=== PATIENT | female | born 1985 | race African-American/Black ===

== ENCOUNTER 2021-08-05 11:57 | Outpatient (RCR) | payer OTHER, SELFPAY | END 2021-10-30 23:59 | disposition home or self-care (01) | LOC: ANHLAB 11:57 | PROVIDERS: Visit Provider Obstetrics & Gynecology | DX: O20.0 Threatened abortion (principal); Z3A.00 Weeks of gestation of pregnancy not specified | CPT/HCPCS: 36415; 84702 ==

== ENCOUNTER 2021-09-17 08:19 | Emergency (ER) | payer OTHER, SELFPAY ==
--- NOTE | ~2021-09-17 | US_ITS ---
EXAMINATION: US OB <= 14 weeks fetus DATE: 09/17/2021 09:14 INDICATION: Vaginal bleeding. Abdomen pain. TECHNIQUE: Real-time transabdominal obstetric ultrasound. FINDINGS: No prior studies for comparison. There is a single living fetus in variable presentation. There are 2 areas of subchorionic hemorrhage measuring up to 1.7 cm and 1.2 cm respectively. cardiac activity and movement is noted with a heart rate of 141 beats per minute. T he amniotic fluid volume is subjectively normal. The following biometric data were obtained: BPD: 27mm corresponds to gestational age 14 weeks 5 days. Head circumference: 86mm corresponds to gestational age 13 weeks 6 days. Abdominal circumference: 66mm corresponds to gestational age 13 weeks 2 days. Femur length: 11mm corresponds to gestational age 13 weeks 2 days. Estimated weight: 74grams +/- 11grams.] There is a 1.8 cm corpus luteal cyst of the right ovary. Left ovary is unremarkable. IMPRESSION: 1. Single living intrauterine with an estimated gestational age of 13 weeks 5 days by curr ent ultrasound. 2. 2 small areas of subchorionic hemorrhage. To 1.7 and 1.2 cm respectively.. Reviewed, dictated and finalized at location A. IMPRESSION: 1. Single living intrauterine with an estimated gestational age of 1 3 weeks 5 days by current ultrasound. 2. 2 small areas of subchorionic hemorrhage. To 1.7 and 1.2 cm respectively..
--- NOTE | 2021-09-17 08:31 | ED.GENADULT ---
HPI - General Adult General Chief complaint: Vaginal Bleeding Stated complaint: 13wks preg, vag bleed Time Seen by Provider: 09/17/21 08:21 Source: RN notes reviewed History of Present Illness HPI narrative: Patient presents emergency department from home for vaginal bleeding. Patient states she is approximately 13 weeks and is followed by Dr. Boles. Patient states she is G3, P2 this a.m. she began to have lower abdominal cramping with vaginal bleeding with wiping she denies any fevers or chills chest pain or shortness of breath states did not take anything for the pain this morning Related Data Allergies Allergy/AdvReac Type Severity Reaction Status Date / Time No Known Allergies Allergy Verified 04/16/16 17:52 Review of Systems Review of Systems: Gen.: Denies fevers or chills ENT: Denies congestion Respiratory: Denies shortness of breath or cough CV: Denies chest pain or palpitations GI: Reports lower abdominal pain denies nausea vomiting or diarrhea see HPI Musculoskeletal: Denies back pain or muscle pain Neuro: Denies numbness, tingling, weakness or focal weakness Skin: Denies rash Except as documented, all other systems reviewed and negative [facility] Past Medical History Medical History (Updated 09/17/21 @ 10:16 by Marcos Culp DO) Patient denies significant medical history Social History Social History (Updated 09/17/21 @ 08:32 by Marcos Culp DO) Smoking status: Never smoker Exam Narrative: APPEARANCE: No acute distress, nontoxic, resting in bed EYES: EOMI HEENT: Normocephalic, atraumatic, OMM RESPIRATORY: No respiratory distress Clear to auscultation bilaterally with no rhonchi wheezing or rales. CARDIOVASCULAR: Regular rate and rhythm without murmurs rubs or gallops. ABDOMINAL: Soft, nontender, nondistended, no rebound or guarding : Normal external exam small amount of dark brown blood in vaginal canal cervix is closed MUSCULOSKELETAl: Moves all extremities. No clubbing, cyanosis or edema. NEURO: Awake and alert. Following commands, speech normal, no focal deficits SKIN:: Warm, dry. No rashes lesions or abrasions PSYCHIATRIC: Normal affect/mood, Course Course Emergency Course: Reviewed old records patient with A + blood type from 03/11/[address] Butler presentation work-up agrees plan for discharge to follow-up as an outpatient Discussed with patient results of workup and diagnosis. Discussed need for follow-up with primary care, proper use of medication, and reasons to return to the emergency department. Patient understands and agrees to current treatment plan Vital Signs Vital signs: Vital Signs Temperature 97.2 F L 09/17/21 08:35 Pulse Rate 99 09/17/21 08:35 Respiratory Rate 18 09/17/21 08:35 Blood Pressure 157/98 H 09/17/21 08:35 Pulse Oximetry 98 09/17/21 08:35 Temperature 97.2 F L 09/17/21 08:35 Pulse Rate 99 09/17/21 08:35 Respiratory Rate 18 09/17/21 08:35 Blood Pressure 157/98 H 09/17/21 08:35 Pulse Oximetry 98 09/17/21 08:35 Medical Decision Making Vital Signs Vital Signs: Vital Signs Temperature 97.2 F L 09/17/21 08:35 Pulse Rate 99 09/17/21 08:35 Respiratory Rate 18 09/17/21 08:35 Blood Pressure 157/98 H 09/17/21 08:35 Pulse Oximetry 98 09/17/21 08:35 Temperature 97.2 F L 09/17/21 08:35 Pulse Rate 99 09/17/21 08:35 Respiratory Rate 18 09/17/21 08:35 Blood Pressure 157/98 H 09/17/21 08:35 Pulse Oximetry 98 09/17/21 08:35 Lab Data Result diagrams: 09/17/21 09:45 Labs: Lab Results 09/17/21 Range/Units 09:45 WBC 7.3 (4.5-10.0) K/mm3 RBC 4.53 (4.2-5.4) M/mm3 Hgb 10.5 L (12.0-15.0) g/dL Hct 33.3 L (37.0-47.0) % MCV 73.5 L (80-100) fl MCH 23.2 L (26-34) pg MCHC 31.5 L (32-36) g/dl RDW 14.6 H (11.5-14.5) % Plt Count 268 (150-375) k/mm3 MPV 12.5 H (7.4-10.4) fl Immature Gran % (Auto) 0.3 (0-0.5) % Neut % (Auto) 70.4
[2021-09-17 08:35] VITALS: BP 157/98; PULSE 99; RESP 18; TEMP 36.2; O2SAT 98
[2021-09-17] MEDS: ACETAMINOPHEN 500 MG TABLET 1000 MG PO (08:41)
--- NOTE | 2021-09-17 09:21 | PC.NURSE ---
Pt in ultrasound at this time
[2021-09-17 09:51] LABS: Basophils Percent Auto 0.4 % (0.2-1.2); Eosinophils Absolute Auto 0.1 K/mm3 (0-0.3); Eosinophils Percent Auto 1.4 % (0-4.4); Hematocrit 33.3 % (37.0-47.0); Hemoglobin 10.5 g/dL (12.0-15.0); Immature Granulocyte Absolute 0.02 K/mm3 (0.00-0.031); Immature Granulocyte Percent A 0.3 % (0-0.5); Lymphocytes Absolute Auto 1.66 K/mm3 (0.9-3.2); Lymphocytes Percent Auto 22.9 % (18.3-44.2); Mean Corpuscular HGB Conc 31.5 g/dl (32-36); Mean Corpuscular Hemoglobin 23.2 pg (26-34); Mean Corpuscular Volume 73.5 fl (80-100); Mean Platelet Volume 12.5 fl (7.4-10.4); Monocytes Absolute Auto 0.3 K/mm3 (0.1-0.6); Monocytes Percent Auto 4.6 % (2.6-8.5); Neutrophils Absolute Auto 5.1 K/mm3 (1.3-6.7); Neutrophils Percent Auto 70.4 % (45.5-73.1); Platelet Count Result 268 k/mm3 (150-375); Red Blood Count 4.53 M/mm3 (4.2-5.4); Red Cell Distribution Width 14.6 % (11.5-14.5); White Blood Count 7.3 K/mm3 (4.5-10.0)
== END 2021-09-17 10:26 | disposition home or self-care (01) ==
PROVIDERS: Emergency Provider Emergency Medicine; PCP Obstetrics & Gynecology
DX: O20.0 Threatened abortion (principal); Z3A.13 13 weeks gestation of pregnancy
CPT/HCPCS: 36415; 76801; 85025; 99284; A9270

== ENCOUNTER 2021-11-13 11:09 | Emergency (ER) | payer OTHER, SELFPAY ==
[2021-11-13 11:23] VITALS: BP 152/80; PULSE 95; RESP 16; TEMP 35.9; O2SAT 100
--- NOTE | 2021-11-13 12:18 | ED.EXTPRO ---
HPI - Extremity Problem General Chief complaint: Extremity Problem,Nontraumatic Stated complaint: 21 weeks preg, swelling in hands and feet Time Seen by Provider: 11/13/21 12:16 Source: patient Mode of arrival: ambulatory Limitations: no limitations History of Present Illness HPI Narrative: Patient is 35 years old -Serbian female, 21 weeks presented to ED because swelling of hands and feet every day when she wake up in the morning, get better during daytime. Today patient feels pain at the right hand and unable to close her hands which gradually is getting better. She denies any fever, chills, nausea, vomiting, diarrhea, vaginal bleeding or discharge or urinary symptoms. 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 Patient is 3 para 2 0. On albuterol treatment and vitamins, she does not smoke or drink or uses drugs. Related Data Allergies Allergy/AdvReac Type Severity Reaction Status Date / Time No Known Allergies Allergy Verified 11/13/21 12:07 Review of Systems Review of Systems: All systems reviewed & are unremarkable except as noted in HPI and below PMFSH Past Medical History Medical History Patient denies significant medical history Social History Social History Smoking status: Never smoker Exam Narrative: General appearance: Well-developed, well-nourished Skin: Normal color, trace edema lower extremity at the ankle area bilaterally Head: Normocephalic, nontraumatic Eyes: Clear conjunctiva ENT: Oropharynx normal, ears normal, nose normal Neck: Supple, nontender Chest and respiratory: Airway patent, no respiratory distress, no accessory muscle use Heart: Regular rate/rhythm Abdomen: Soft, nontender, no organomegaly, quiet bowel sounds Vascular: Normal peripheral pulses, normal capillary refill. Musculoskeletal: Normal range of motion, nontender back, hands and feet showed no sign of infection, no bruises, no swelling, no localized tenderness, no rash slightly tender with deep palpation. Neurologic: Alert and oriented ?3, [employer] is normal as tested, no gross motor deficit Course Course Emergency Course: Patient symptoms high likely related to immobility, long hours of working in the standing position, and sedentary life and related symptoms. Work-up showed possible urinary tract infection, amoxicillin prescribed, patient agreed and ready to go home. Vital Signs Vital signs: Vital Signs Temperature 35.9 C L 11/13/21 11:23 Pulse Rate 95 11/13/21 11:23 Respiratory Rate 16 11/13/21 11:23 Blood Pressure 152/80 H 11/13/21 11:23 Pulse Oximetry 100 11/13/21 11:23 Temperature 35.9 C L 11/13/21 11:23 Pulse Rate 95 11/13/21 11:23 Respiratory Rate 16 11/13/21 11:23 Blood Pressure 152/80 H 11/13/21 11:23 Pulse Oximetry 100 11/13/21 11:23 MDM - Extremity (Nontraumatic) Lab Data Result diagrams: 11/13/21 12:47 11/13/21 12:47 Labs: Lab Results 11/13/21 11/13/21 11/13/21 Range/Units 12:47 12:47 12:47 WBC 9.2 (4.5-10.0) K/mm3 RBC 4.35 (4.2-5.4) M/mm3 Hgb 10.0 L (12.0-15.0) g/dL Hct 32.0 L (37.0-47.0) % MCV 73.6 L (80-100) fl MCH 23.0 L (26-34) pg MCHC 31.3 L (32-36) g/dl RDW 14.2 (11.5-14.5) % Plt Count 208 (150-375) k/mm3 MPV 11.8 H (7.4-10.4) fl Immature Gran % (Auto) 0.3 (0-0.5) % Neut % (Auto) 75.1 H (45.5-73.1) % Lymph % (Auto) 18.5 (18.3-44.2) % Gage % (Auto) 4.5 (2.6-8.5) % Eos % (A
--- NOTE | 2021-11-13 12:22 | ECG_ITS ---
Measurements Intervals [place] Rate: 80 P: 2 OK: 159 QRS: 10 QRSD: 92 T: 10 QT: 366 QTc: 422 Interpretive Statements SINUS RHYTHM WITH SINUS ARRHYTHMIA BASELINE ARTIFACT- I, II, III, AVR, AVF NORMAL ECG Electronically Signed On 11-13-2021 13:34:47 CDT by Evelio Sherwood D.O.
[2021-11-13 12:55] LABS: Basophils Percent Auto 0.2 % (0.2-1.2); Eosinophils Absolute Auto 0.1 K/mm3 (0-0.3); Eosinophils Percent Auto 1.4 % (0-4.4); Immature Granulocyte Absolute 0.03 K/mm3 (0.00-0.031); Immature Granulocyte Percent A 0.3 % (0-0.5); Immature Platelet Fraction Pct 5.6 % (0.9-11.2); Lymphocytes Percent Auto 18.5 % (18.3-44.2); Mean Corpuscular HGB Conc 31.3 g/dl (32-36); Mean Corpuscular Volume 73.6 fl (80-100); Mean Platelet Volume 11.8 fl (7.4-10.4); Monocytes Absolute Auto 0.4 K/mm3 (0.1-0.6); Monocytes Percent Auto 4.5 % (2.6-8.5); Neutrophils Absolute Auto 6.9 K/mm3 (1.3-6.7); Neutrophils Percent Auto 75.1 % (45.5-73.1); Platelet Count Result 208 k/mm3 (150-375); Red Blood Count 4.35 M/mm3 (4.2-5.4); Red Cell Distribution Width 14.2 % (11.5-14.5); White Blood Count 9.2 K/mm3 (4.5-10.0)
[2021-11-13 13:04] LABS: Prothrombin Time 12.9 Seconds (11.1-14.7)
[2021-11-13 13:05] LABS: Alanine Aminotransferase 29 U/L (6-35); Albumin Level 3.7 g/dL (3.5-5.1); Alkaline Phosphatase 49 U/L (38-126); Anion Gap 7 mmol/L (8-16); Aspartate Amino Transferase 29 U/L (14-36); Bilirubin,Total 0.1 mg/dL (0.2-1.3); Blood Urea Nitrogen 9 mg/dL (7-17); Calcium 8.9 mg/dL (8.4-10.2); Carbon Dioxide 18 mmol/L (22-30); Chloride 110 mmol/L (98-107); Estimated CRCL calculation 133 ml/min; Estimated Glomerular Filt Rate > 60; Glucose 95 mg/dL (65-110); Potassium 3.9 mmol/L (3.4-5.0); Sodium 135 mmol/L (137-145)
[2021-11-13 13:13] LABS: Appearance Urine Cloudy (Clear); Bilirubin Urine Negative (Negative); Blood Urine 2+ (Negative); Color Urine Yellow (Yellow); Glucose Urine UA Negative (Negative); Ketones Urine Trace mg/dL (Negative); Leukocyte Esterase Ur 2+ LEU/UL (Negative); Nitrate Urine Negative (Negative); Protein Urine Trace mg/dL (Negative); Specific Grav Ur >= 1.030 (1.001-1.035); Urobilinogen Urine 0.2 mg/dL (<2.0)
[2021-11-13 13:44] LABS: Bacteria Urine Trace /hpf; Mucus Urine Heavy /lpf; Squamous Epithelial Cell Urine Many /hpf (Few)
[2021-11-13 13:51] LABS: Add Urine Microscopic? YES
== END 2021-11-13 14:30 | disposition home or self-care (01) ==
PROVIDERS: Emergency Provider Emergency Medicine; PCP Obstetrics & Gynecology
DX: O23.92 Unspecified genitourinary tract infection in pregnancy, second trimester (principal); O26.892 Other specified pregnancy related conditions, second trimester; M79.89 Other specified soft tissue disorders; Z3A.21 21 weeks gestation of pregnancy
CPT/HCPCS: 36415; 80053; 81001; 85025; 85055; 85610; 85730; 87086; 87088; 93005; 99283

== ENCOUNTER 2022-03-14 10:00 | Outpatient (CLI) | payer OTHER, SELFPAY ==
[2022-03-14 10:41] LABS: Hematocrit 35.4 % (37.0-47.0); Hemoglobin 10.6 g/dL (12.0-15.0); Immature Platelet Fraction Pct 4.7 % (0.9-11.2); Mean Corpuscular HGB Conc 29.9 g/dl (32-36); Mean Corpuscular Hemoglobin 21.8 pg (26-34); Mean Corpuscular Volume 72.7 fl (80-100); Mean Platelet Volume 11.2 fl (7.4-10.4); Platelet Count Result 221 k/mm3 (150-375); Red Blood Count 4.87 M/mm3 (4.2-5.4); Red Cell Distribution Width 15.5 % (11.5-14.5); White Blood Count 8.7 K/mm3 (4.5-10.0)
[2022-03-14 15:00] LABS: Rapid Plasma Reagin Non-Reactive (NonReactive)
== END 2022-03-14 10:01 | disposition home or self-care (01) ==
PROVIDERS: Visit Provider Obstetrics & Gynecology
DX: Z01.818 Encounter for other preprocedural examination (principal)
CPT/HCPCS: 36415; 85027; 85055; 86592; 86850; 86900; 86901

== ENCOUNTER 2022-03-15 10:00 | Inpatient (IN) | payer OTHER, SELFPAY ==
[2022-03-15] VITALS (58 sets, daily range): BP systolic 78–147; BP diastolic 26–87; PULSE 79–96; RESP 16–22; TEMP 36.1–36.4; O2SAT 95–100; BMI 64.5
--- OUTSIDE RECORDS SUMMARY | 2022-03-15 10:06 | XMS_ITS | Encounter Summary ---
:1985 Author Care Team Providers Name Role Phone Phu Alvarez MD Primary Care Provider [phone] Reason for Visit OB visit OB [id number] EDC 03/27/2022 LMP 06/20/2021 Assessment and Plan Assessment Note Patient is _37__weeks . Discuss ed plan. 1. Routine care Discussion Note: None recorded.Patient educational handouts: No information available. Plan of Care Reminders Provider Appointments Surg Post Op 03/22/2022 2:30PM Daniel Butler MD Lab None recorded. ? ? Referral None recorded. ? ? Procedures None recorded. ? ? Surgeries None recorded. ? ? Imaging None recorded. ? ? Medications Name Start Date ? ? ergocalciferol (vitamin D2) 1,250 mcg (50,000 unit) ca psule ? TAKE 1 CAPSULE BY MOUTH EVERY WEEK FOR 12 WEEKS Vitamin ? ProAir HFA 90 mcg/actuation aerosol inhaler 09/16/2014 inhale 2 puff by inhalation route every 4 - 6 hours a s needed Vitamin D ? Medications Administered None recorded. Vitals Height Weight BMI Blood Pressure 5 ft 0.5 in 322 lbs 61.9 kg/m2 122/76 mm[Hg] Results Lab Results None recorded. Allergies Code Code System Name Reaction Severity Onset NKDA ? ? ? Notes: NO KNOWN ALLERGIES (Active) Com ment: Location: [facility]; Problems Name Status Onset Date Source ? Active 09/02/2021 ? Obesity Active ? ? Asthma Active ? ? Deliveries by Active
--- OUTSIDE RECORDS SUMMARY | 2022-03-15 10:06 | XMS_ITS | Encounter Summary ---
:1985 Author Care Team Providers Name Role Phone Phu Alvarez MD Primary Care Provider [phone] Reason for Visit None recorded. Assessment and Plan 1. Maternal obesity complicating pregna ncy, childbirth and the puerperium, antepartum ? non-stress test Discussion Note: None recorded.Patient educational handouts: No information available. Plan of Care Reminders Provider Appointments Surg Post Op 03/22/2022 2:30PM Daniel Butler MD Lab None recorded. ? ? Referral None recorded. ? ? Procedures None recorded. ? ? Surgeries None recorded. ? ? Imaging Non-stress Test 03/10/2022 [place] Medications Name Start Date ? ? ergocalciferol (vitamin D2) 1,250 mcg (50,000 unit) ca psule ? TAKE 1 CAPSULE BY MOUTH EVERY WEEK FOR 12 WEEKS Vitamin ? ProAir HFA 90 mcg/actuation aerosol inhaler 09/16/2014 inhale 2 puff by inhalation route every 4 - 6 hours a s needed Vitamin D ? Medications Administered None recorded. Vitals None recorded. Results Lab Results None recorded. Allergies Code Code System Name Reaction Severity Onset NKDA ? ? ? Notes: NO KNOWN ALLERGIES (Active) Com ment: Location: [facility]; Problems Name Status Onset Date Source ? Active 09/02/2021 ? Obesity Active ? ? Asthma Active ? ? Deliveries by Active ? ? Procedures Date Name Performed by ? 03/12/2015 Section Information not ricardo lovett
--- OUTSIDE RECORDS SUMMARY | 2022-03-15 10:06 | XMS_ITS | Encounter Summary ---
:1985 Author Care Team Providers Name Role Phone Phu Alvarez MD Primary Care Provider [phone] Reason for Visit None recorded. Assessment and Plan 1. Maternal obesity complicating pregna ncy, childbirth and the puerperium, antepartum ? US, obstetric, biophysical profile + non-stress test Discussion Note: None recorded.Patient educational handouts: No information available. Plan of Care Reminders Provider Appointments Surg Post Op 03/22/2022 Daniel washington MD 2:30PM Lab None recorded. ? ? Referral None recorded. ? ? Procedures None recorded. ? ? Surgeries None recorded. ? ? Imaging US, Obstetric, Biophysical 02/24/2022 [facility] Profile + Non-stress Test Medications Name Start Date ? ? ergocalciferol [...] NO KNOWN ALLERGIES (Active) Com ment: Location: [facility]; Problems Name Status Onset Date Source ? Active 09/02/2021 ? Obesity Active ? ? Asthma Active ? ? Deliveries by Active ? ? Proce
--- OUTSIDE RECORDS SUMMARY | 2022-03-15 10:06 | XMS_ITS ---
:1985 Author Care Team Providers Name Role Phone NANCY AUSTIN MD Primary Care Provider [phone] Allergies Code Code System Name Reaction Severity Status Onset NKDA ? Notes: NO KNOWN ALLERGIES (Active) Com ment: Location: [facility]; Medications Name Status Start Date Stop Date ? ? amoxicillin 875 mg tablet Completed ? 2021 TAKE 1 TABLET BY MOUTH EVERY 12 HOURS ergocalciferol (vitamin D2) 1,250 mcg (50,000 unit) capsule Acti ve ? Not available TAKE 1 CAPSULE BY MOUTH EVERY WEEK FOR 12 WEEKS Judy 0.35 mg tablet Completed 08/15/2018 07/04/2019 take 1 tablet by oral route every day hydrochlorothiazide 25 mg tablet Completed 03/18/2015 04/14/2015 take 1 tablet by oral route every day iron 18 mg tablet Completed 04/14/2015 01/22/2021 Microgestin FE /20 (28) 1 mg-20 mcg (21)/75 mg (7) tablet Compl eted 10/06/2013 02/02/2014 take 1 tablet by oral route every day Ortho Tri-Cyclen LO (28) 0.18 mg/0.215 mg/0.25 mg-25 mcg tab let Completed 06/14/2015 07/11/2015 take 1 tablet by oral route every day for 28 days Vitamin Active ? Not available ProAir HFA 90 mcg/actuation aerosol inhaler Active 08/30 Not available inhale 2 puff by inhalation route every 4 - 6 hours as needed Tri Femynor (28) 0.18 mg(7)/0.215 mg(7)/0.25 Active ? Not available mg(7)-35 mcg tablet Vitamin D Active ? Not available Problems Name Status Onset Date Source ? Primigravida Unknown 01/20/2013 History Test Positive Unknown 01/20/2013 History Screening for Malignant Neoplasm of Cervix Unknown 01/20 History
--- OUTSIDE RECORDS SUMMARY | 2022-03-15 10:06 | XMS_ITS | Encounter Summary ---
:1985 Author Care Team Providers Name Role Phone Phu Alvarez MD Primary Care Provider [phone] Reason for Visit OB visit OB [id number] EDC 03/27/2022 LMP 06/20/2021 Assessment and Plan Assessment Note Patient is _36__weeks . Discuss ed plan. 1. Routine care [...] BMI Blood Pressure 5 ft 0.5 in 318 lbs 61.1 kg/m2 128/70 mm[Hg] Results Lab Results None recorded. Allergies Code Code System Name Reaction Severity Onset NKDA ? ? ? Notes: NO KNOWN ALLERGIES (Active) Com ment: Location: [facility]; Problems Name Status Onset Date Source ? Active 09/02/2021 ? Obesity Active ? ? Asthma Active ? ? Deliveries by Active
--- OUTSIDE RECORDS SUMMARY | 2022-03-15 10:06 | XMS_ITS | Encounter Summary ---
:1985 Author Care Team Providers Name Role Phone Phu Alvarez MD Primary Care Provider [phone] Reason for Visit None recorded. Assessment and Plan 1. Maternal obesity complicating pregna ncy, childbirth and the puerperium, antepartum ? US, obstetric, follow-up ? US, obstetric, biophysical profile + non-stress test Discussion Note: None recorded.Patient educational handouts: No information available. Plan of Care Reminders Provider Appointments Surg Post Op 03/22/2022 Daniel washington MD 2:30PM Lab None recorded. ? ? Referral None recorded. ? ? Procedures None recorded. ? ? Surgeries None recorded. ? ? Imaging US, Obstetric, Follow-up 03/03/2022 [place] ? US, Obstetric, Biophysical 03/03/2022 [place] Profile + Non-stress Test Medications Name Start [...] NO KNOWN ALLERGIES (Active) Com ment: Location: [facility]; Problems Name Status Onset Date Source ? Active 09/02/2021 ? Obesity Active ? ?
--- OUTSIDE RECORDS SUMMARY | 2022-03-15 10:06 | XMS_ITS | Encounter Summary ---
:1985 Author Care Team Providers Name Role Phone Phu Alvarez MD Primary Care Provider [phone] Reason for Visit None recorded. Assessment and [...] None recorded. ? ? Imaging Non-stress Test 03/03/2022 [place] Medications Name Start Date ? ? ergocalciferol [...] NO KNOWN ALLERGIES (Active) Com ment: Location: [facility]; Problems Name Status Onset Date Source ? Active 09/02/2021 ? Obesity Active ? ? Asthma Active ? ? Deliveries by Active ? ? Procedures Date Name Performed by ? 03/12/2015 Section Information not ricardo lovett
--- OUTSIDE RECORDS SUMMARY | 2022-03-15 10:06 | XMS_ITS | Encounter Summary ---
:1985 Author Care Team Providers Name Role Phone Phu Alvarez MD Primary Care Provider [phone] Reason for Visit None recorded. Assessment and Plan 1. Maternal obesity complicating pregna ncy, childbirth and the puerperium, antepartum ? US, obstetric, biophysical profile Discussion Note: None recorded.Patient educational handouts: No information available. Plan of Care Reminders Provider Appointments Surg Post Op 03/22/2022 Daniel washington MD 2:30PM Lab None recorded. ? ? Referral None recorded. ? ? Procedures None recorded. ? ? Surgeries None recorded. ? ? Imaging US, Obstetric, Biophysical 03/10/2022 [facility] Profile Medications Name Start Date ? ? ergocalciferol [...] NO KNOWN ALLERGIES (Active) Com ment: Location: [facility]; Problems Name Status Onset Date Source ? Active 09/02/2021 ? Obesity Active ? ? Asthma Active ? ? Deliveries by Active ? ? Procedures
--- OUTSIDE RECORDS SUMMARY | 2022-03-15 10:07 | XMS_ITS | Encounter Summary ---
:1985 Author Care Team Providers Name Role Phone Phu Alvarez MD Primary Care Provider [phone] Reason for Visit None recorded. Assessment and [...] None recorded. ? ? Imaging Non-stress Test 02/24/2022 [place] Medications Name Start Date ? ? ergocalciferol [...] NO KNOWN ALLERGIES (Active) Com ment: Location: [facility]; Problems Name Status Onset Date Source ? Active 09/02/2021 ? Obesity Active ? ? Asthma Active ? ? Deliveries by Active ? ? Procedures Date Name Performed by ? 03/12/2015 Section Information not ricardo lovett
--- OUTSIDE RECORDS SUMMARY | 2022-03-15 10:07 | XMS_ITS | Encounter Summary ---
:1985 Author Care Team Providers Name Role Phone Phu Alvarez MD Primary Care Provider [phone] Reason for Visit OB visit OB [id number] EDC 03/27/2022 LMP 06/20/2021 Assessment and Plan Assessment Note Patient is __34_weeks . Discuss ed plan. 1. Routine care [...] BMI Blood Pressure 5 ft 0.5 in 320 lbs 61.5 kg/m2 138/80 mm[Hg] Results Lab Results None recorded. Allergies Code Code System Name Reaction Severity Onset NKDA ? ? ? Notes: NO KNOWN ALLERGIES (Active) Com ment: Location: [facility]; Problems Name Status Onset Date Source ? Active 09/02/2021 ? Obesity Active ? ? Asthma Active ? ? Deliveries by Active
--- OUTSIDE RECORDS SUMMARY | 2022-03-15 10:07 | XMS_ITS | Encounter Summary ---
:1985 Author Care Team Providers Name Role Phone Phu Alvarez MD Primary Care Provider [phone] Reason for Visit None recorded. Assessment and [...] None recorded. ? ? Imaging Non-stress Test 02/09/2022 [place] Medications Name Start Date ? ? ergocalciferol [...] NO KNOWN ALLERGIES (Active) Com ment: Location: [facility]; Problems Name Status Onset Date Source ? Active 09/02/2021 ? Obesity Active ? ? Asthma Active ? ? Deliveries by Active ? ? Procedures Date Name Performed by ? 03/12/2015 Section Information not ricardo lovett
--- OUTSIDE RECORDS SUMMARY | 2022-03-15 10:07 | XMS_ITS | Encounter Summary ---
:1985 Author Care Team Providers Name Role Phone Phu Alvarez MD Primary Care Provider [phone] Reason for Visit OB visit Assessment and Plan Assessment Note Patient is ___weeks . Discussed plan. 1. Routine care Discussion Note: None [...] BMI Blood Pressure 5 ft 0.5 in 315 lbs 60.5 kg/m2 (1) 150/100 mm[ Hg] (2) 134/84 mm[Hg ] Results Lab Results None recorded. Allergies Code Code System Name Reaction Severity Onset NKDA ? ? ? Notes: NO KNOWN ALLERGIES (Active) Com ment: Location: [facility]; Problems Name Status Onset Date Source ? Active 09/02/2021 ? Obesity Active ? ? Asthma Active ? ? Deliveries by A
--- OUTSIDE RECORDS SUMMARY | 2022-03-15 10:07 | XMS_ITS | Encounter Summary ---
:1985 Author Care Team Providers Name Role Phone Phu Alvarez MD Primary Care Provider [phone] Reason for Visit None recorded. Assessment and Plan 1. condition affecting obstetrica l care of mother ? US, obstetric, biophysical profile + non-stress test Discussion Note: None recorded.Patient educational handouts: No information available. Plan of Care Reminders Provider Appointments Surg Post Op 03/22/2022 Daniel washington MD 2:30PM Lab None recorded. ? ? Referral None recorded. ? ? Procedures None recorded. ? ? Surgeries None recorded. ? ? Imaging US, Obstetric, Biophysical 02/09/2022 [facility] Profile + Non-stress Test Medications Name Start [...] NO KNOWN ALLERGIES (Active) Com ment: Location: [facility]; Problems Name Status Onset Date Source ? Active 09/02/2021 ? Obesity Active ? ? Asthma Active ? ? Deliveries by Active ? ? Procedures Date Name Performe
--- NOTE | 2022-03-15 10:30 | WPDANESEPPF ---
Anes - Initial Pre Proc Eval Procedure: Operation Date: 03/15/22 12:00 Proposed Procedures p Repeat Section - Rossy Butler MD Date/Time: 03/15/22 10:30 Surgeon: Rossy Butler MD Pre Op Diagnosis: c/s Patient Data Age: 36 Gender: F Height: 1.5 m Weight: 144.8 kg Allergies Allergy/AdvReac Type Severity Reaction Status Date / Time No Known Allergies Allergy Verified 11/13/21 12:07 Home Medications Medication Instructions Recorded Confirmed Type albuterol 90 mcg/actuation aerosol mcg inhalation PRN Wheezing 03/02/22 03/02/22 History inhaler cholecalciferol (vitamin D3) 100 PO WEEKLY 03/02/22 History mcg (4,000 unit) capsule ferrous sulfate 140 mg (45 mg 140 mg PO DAILY 03/02/22 03/02/22 History iron) tablet,extended release prenat.vits,eben,duk-jgnd-ubsoh 1 tablet PO DAILY 03/02/22 03/02/22 History Patient hx anesthesia problems: none Family hx anesthesia problems: none Results Review: All pre-operative results and documents have been reviewed as part of the pre-operative evaluation. [facility] Past Medical History Medical History (Updated 03/15/22 @ 10:31 by Asa Gonzalez MD) HTN (hypertension) Morbid obesity Surgical History Surgical History (Updated 03/15/22 @ 10:31 by Asa Gonzalez MD) History of section Family History Family History Grandparent Hypertension Diabetes mellitus Mother Hypertension Diabetes mellitus Social History Social History Smoking status: Never smoker Substance use: never Spiritual care concerns: No Anes - Eval Final PreProcedure Day of Procedure 03/15/22 10:30 Patient weight: super morbidly obese Heart: regular rate and rhythm Lungs: clear to auscultation Airway: Mallampati scale class II Neurological: alert and oriented Last oral intake: >/= 8 hours ASA classification: III Emergent: no Anesthesia type and monitoring: regional spinal and standard monitoring Results Review: All pre-operative results and documents have been reviewed as part of the pre-operative evaluation. Informed Consent: The patient's anesthetic plan and its attendant risks and benefits were discussed with the patient/family/POA. Questions were solicited and answers provided to the satisfaction of the patient/family/POA.
[2022-03-15] MEDS: LACTATED RINGERS 1,000 ML 125 ML IV CONT (10:39)
--- NOTE | 2022-03-15 10:57 | LDADM ---
This patient, Diana Alex, was admitted to Labor/Delivery/Recovery 120 on 03/15/22 at 10:00. Plans for section/ and pain management were discussed with patient. Patient/family oriented to hospital policies and general routines including ID bracelet, bed and alarms, visiting hours, pain management, procedures, bathroom and other care routines, personal items, smoking policy, room service/diet and guest tray routines, security routines, and visiting hours. Patient/Family are encouraged to report perceived risks to care and to ask questions if they do not understand what they are told or what they should do.
--- NOTE | 2022-03-15 11:09 | PM.IMHP ---
H&P: HPI History of Present Illness Date/Time: 03/15/22 11:09 Chief Complaint: Term gestation Narrative: this patient is a multiparous 36-year-old female at 38 weeks gestation with history of chronic hypertension and previous delivery. We agreed to perform delivery at 38 weeks. She understands that there is risk of that injuries may occur. She understands these injuries may result in prolonged hospitalization, more surgery and severe illness. She understands risk of hemorrhage and infection. She denies any chest pain shortness of breath. She denies any nausea, vomiting, fever, chills. Review of Systems Review of Systems: All systems reviewed & are unremarkable except as noted in HPI and below Constitutional: Constitutional: Denies chills, Denies fatigue, Denies fever(s) and Denies weakness Eyes: Eyes: Denies blurry vision, Denies change in vision, Denies loss of peripheral vision, Denies loss of vision, Denies other visual disturbances and Denies eye pain ENT: Denies vertigo, Denies dizziness, Denies hearing loss, Denies mouth pain, Denies nasal obstruction, Denies neck mass and Denies neck pain Cardiovascular: Cardiovascular: Denies chest pain, Denies diaphoresis, Denies syncope, Denies leg edema and Denies dyspnea Respiratory: Respiratory: Denies chest congestion, Denies cough, Denies hemoptysis, Denies dyspnea and Denies wheezing Gastrointestinal: Gastrointestinal: Denies abdominal pain, Denies constipation, Denies diarrhea, Denies nausea and Denies vomiting Genitourinary: Genitourinary: Denies hematuria, Denies change in libido, Denies nocturia, Denies genital lesions, Denies flank pain and Denies urinary urgency Musculoskeletal: Musculoskeletal: Denies abnormal gait, Denies back pain, Denies myalgias, Denies arthralgias, Denies joint swelling, Denies muscle weakness and Denies neck pain Integumentary/Breasts: Skin/Breast: Denies swelling, Denies breast pain, Denies breast mass, Denies dry skin, Denies nipple discharge, Denies unusual bruising and Denies jaundice Neurologic: Denies Neuro-related abnormal movements, Denies Abnormal speech present, Denies abnormal gait, Denies behavioral changes, Denies confusion, Denies vertigo, Denies dizziness, Denies syncope, Denies loss of vision, Denies memory loss, Denies convulsions and Denies weakness Psychiatric: Psychiatric: Denies abnormal sleep pattern, Denies behavioral changes, Denies change in libido, Denies confusion, Denies depression, Denies anhedonia and Denies memory loss Endocrine: Endocrine: Reports no additional endocrine complaints, Denies change in libido and Denies fatigue Hematologic/Lymphatic: Hematologic/Lymphatic: Reports no additional hematologic/lymphatic complaints Allergic/Immunologic: Allergic/Immunologic: Reports no additional allergic/immunologic complaints and Denies wheezing PMFSH Past Medical History Medical History (Updated 03/15/22 @ 11:11 by Rossy Butler MD) HTN (hypertension) Morbid obesity Surgical History Surgical History (Updated 03/15/22 @ 11:11 by Rossy Butler MD) History of section Family History Family History Grandparent Hypertension Diabetes mellitus Mother Hypertension Diabetes mellitus Social History Social History Smoking status: Never smoker Substance use: never Spiritual care concerns: No Meds Home Medications and Allergies Home Medications Medication Instructions Recorded Confirmed Type albuterol 90 mcg/actuation aerosol 90 mcg inhalation Q4H PRN Wheezing 03/02/22 03/15/22 History inhaler cholecalciferol (vitamin D3) 100 4,000 unit PO DAILY 03/02/22 03/15/22 History mcg (4,000 unit) capsule ferrous sulfate 140 mg (45 mg 140 mg PO DAILY 03/02/22 03/02/22 History iron) tablet,extended release prenat.vits,eben,[id number] 1 tablet PO DAILY
[2022-03-15] MEDS: ceFAZolin 3 GM/D5W 100 ML 100 ML IVPB (11:11)
--- NOTE | 2022-03-15 11:11 | WPDHPUPDATE1 ---
History and Physical Update Update Date/Time: 03/15/22 11:11 History and Physical has been reviewed, including an updated exam of the patient. There are NO changes in the patient's condition. Risks, benefits, and alternatives have been discussed and questions answered. Patient agrees to proceed with procedure.
--- NOTE | 2022-03-15 12:05 | W.PM.PROC2 ---
Procedure Note - Detailed Date of Procedure 03/15/22 Pre-op Diagnosis c/s, Chronic hypertension Post-op Diagnosis Same Procedure Performed Low-transverse section Surgeon Rossy Butler MD Anesthesia Spinal Indications chronic hypertension, previous Findings Normal gestational maternal anatomy, average size , normal Apgars. Description of Procedure performed in stat fashion: The patient was taken the operating room. She was prepped and draped in dorsal supine position with a leftward tilt. This was done after spinal anesthetic was applied. A low-transverse skin incision was made and carried down till of the fascia with the knife. The fascial incision was made with the knife. The fascial incision was extended laterally with Morton scissors. The fascia was tented upward superiorly and inferiorly the rectus muscles were dissected off bluntly. The rectus muscles were the midline. The preperitoneal fat and peritoneum were dissected open bluntly at the superior aspect of the rectus muscles. The peritoneal incision was extended superior and inferior with good position of bladder. The uterine incision was made with a scalpel down to the level of the amniotic cavity. The amniotic cavity was entered bluntly. The was delivered. The cord was clamped and cut and the was handed off to waiting pediatric staff. Cord bloods were obtained. The placenta was removed manually. The uterus was exteriorized. The uterus was cleared of all clots, debris and membranes. The uterus was closed in 0 Vicryl running lock fashion. An imbricating over a was placed along the incision line as well. The uterus was returned to the abdomen. The gutters were cleared of all clots and debris. The fascia was closed with 0 Vicryl running fashion. The subcutaneous tissue was irrigated pinpoint bleeders were cauterized. The skin was closed with subcuticular absorbable dawit. The skin incision line was covered with glue. The patient tolerated the procedure well. She has taken recovery room in stable condition. Sponge lap and needle counts were correct x2. Estimated Blood Loss 365 Complications No immediate complications Condition Stable Disposition PACU
--- NOTE | 2022-03-15 12:26 | SUR.OPER ---
Tried briefly to obtain FHT's after spinal anesthetic, but unable to find and due to emergent nature of pt requiring intubation, stopped trying to find FHT's and proceded with desai and prep for delivery.
[2022-03-15] MEDS: OXYTOCIN 30 UNITS/NS 500 ML 30 UNITS/500 ML BAG 125 UNITS IV CONT (12:47)
--- NOTE | 2022-03-15 15:55 | PC.NURSE ---
PT arrived on unit via stretcher unaccompanied and taken to room 291. in level 2 nursery. PT alert and awake and transferred to bed via maxi air and assistance. PT introductions made and plan of care discussed per postop c section, pain management, breast/pumping/bottle feeding, daily care activities. PT sole recipient of such instructions and no barriers to learning identified at this time. PT received such instructions this shift per one to one discussion, mom baby care guide and demonstrations. PT verbalized understanding of such care.
[2022-03-15] MEDS: KETOROLAC 30 MG/ML VIAL (*BKC) IV PUSH ×2 (16:32→22:51)
[2022-03-15] MEDS: HYDROcodone/acetaminophen (*CRX) 5-325 MG TABLET 1 TAB PO ×3 (16:34→22:52)
[2022-03-15] MEDS: SIMETHICONE 80 MG TAB.CHEW PO (16:35)
[2022-03-15] MEDS: LANOLIN (LANSINOH) 7.5 GM CREAM 1 APPLIC TOPICAL (17:39)
[2022-03-15] MEDS: DOCUSATE SODIUM 100 MG CAPSULE PO (19:06)
--- NOTE | 2022-03-15 19:25 | PC.NURSE ---
Breast pump provided due to in level 2 nursery. Instructions given on cleaning, care, usage, that there should be no pain, pumping schedule for milk production, collection, and storage of human milk. Mother encouraged to record pumping schedule on the pumping log. Patient was assessed for correct placement, flange size, to pump for comfort and nipple stretching/stimulation for adequate milk production every 3 hours (8 times in 24 hours). Mother voiced understanding of the education shared along with mom and baby guide for additional resource information.
[2022-03-15] MEDS: DEXTROSE 5%/0.45% SOD CHL 1,000 ML 125 ML IV CONT (22:49)
[2022-03-16 00:30] VITALS: BP 110/62; PULSE 82; RESP 18; TEMP 37; O2SAT 99
[2022-03-16] MEDS: HYDROcodone/acetaminophen (*CRX) 5-325 MG TABLET 1 TAB PO ×6 (02:05→21:00)
[2022-03-16] MEDS: KCL 20 MEQ/D5/0.45% SOD CHL 1,000 ML 125 ML IV CONT (03:22)
[2022-03-16 04:30] VITALS: BP 113/73; PULSE 84; RESP 16; TEMP 36.7; O2SAT 99
[2022-03-16] MEDS: IBUPROFEN 600 MG TABLET PO ×3 (05:17→17:39)
[2022-03-16 05:38] LABS: Basophils Percent Auto 0.2 % (0.2-1.2); Eosinophils Percent Auto 0.2 % (0-4.4); Hematocrit 32.7 % (37.0-47.0); Hemoglobin 9.9 g/dL (12.0-15.0); Immature Granulocyte Absolute 0.07 K/mm3 (0.00-0.031); Immature Granulocyte Percent A 0.6 % (0-0.5); Immature Platelet Fraction Pct 5.1 % (0.9-11.2); Lymphocytes Absolute Auto 1.77 K/mm3 (0.9-3.2); Lymphocytes Percent Auto 14.1 % (18.3-44.2); Mean Corpuscular HGB Conc 30.3 g/dl (32-36); Mean Corpuscular Hemoglobin 21.9 pg (26-34); Mean Corpuscular Volume 72.2 fl (80-100); Mean Platelet Volume 13.1 fl (7.4-10.4); Monocytes Absolute Auto 0.9 K/mm3 (0.1-0.6); Monocytes Percent Auto 7.5 % (2.6-8.5); Neutrophils Absolute Auto 9.8 K/mm3 (1.3-6.7); Neutrophils Percent Auto 77.4 % (45.5-73.1); Platelet Count Result 212 k/mm3 (150-375); Red Blood Count 4.53 M/mm3 (4.2-5.4); Red Cell Distribution Width 15.4 % (11.5-14.5); White Blood Count 12.6 K/mm3 (4.5-10.0)
[2022-03-16 05:41] VITALS: PULSE 84; RESP 16; O2SAT 99
[2022-03-16 07:14] LABS: Platelet Estimate Adequate (Adequate)
[2022-03-16 07:15] LABS: Anisocytosis 2+ (NORMAL); Microcytosis 2+ (NORMAL)
[2022-03-16 07:16] LABS: Hypochromasia 2+ (NORMAL); Macrocytosis 1+ (NORMAL)
--- NOTE | 2022-03-16 07:48 | P.PNOB_ITS ---
OB - PN: Subj Subjective Date/time seen: 03/16/22 07:48 s/p rpt cesraean section day 1 OB - PN: Obj Data Labs CBC & Chem 7: 03/16/22 04:38 Labs: Laboratory Results - last 24 hr 03/16/22 04:38 WBC 12.6 H RBC 4.53 Hgb 9.9 L Hct 32.7 L MCV 72.2 L MCH 21.9 L MCHC 30.3 L RDW 15.4 H Plt Count 212 MPV 13.1 H Immature Gran % (Auto) 0.6 H Neut % (Auto) 77.4 H Lymph % (Auto) 14.1 L [place] % (Auto) 7.5 Eos % (Auto) 0.2 Baso % (Auto) 0.2 Lymph # (Auto) 1.77 [place] # (Auto) 0.9 H Eos # (Auto) 0.0 Baso # (Auto) 0.0 Abs Immat Gran (auto) 0.07 H Absolute Neuts (auto) 9.8 H Absolute Nucleated RBC 0.0 Nucleated RBC % 0.0 Platelet Estimate Adequate % Immature Plt Fraction 5.1 Hypochromasia 2+ Anisocytosis 2+ Microcytosis 2+ Macrocytosis 1+ OB - PN A/P Plan day: 1 Time Spent With Patient Time: Total time spent is greater than 50% in coordination of care (as documented) at patient's floor/unit and/or counseling patient: Review of Systems Review of Systems: All systems reviewed & are unremarkable except as noted in HPI and below Exam Const: General: cooperative Resp: Effort & Inspection: normal respiratory effort Cardio: Rate: regular rate GI: Other: incision CDI Skin: General skin exam: normal color
[2022-03-16 08:15] VITALS: BP 129/83; PULSE 88; RESP 16; TEMP 36.4; O2SAT 100
[2022-03-16] MEDS: POLYSACCHARIDE IRON COMPLEX 150 MG CAPSULE PO ×2 (08:31→17:40)
[2022-03-16] MEDS: MULTIVIT/MIN/PREN/FOL AC/IRON TABLET 1 TAB PO (08:31)
[2022-03-16] MEDS: DOCUSATE SODIUM 100 MG CAPSULE PO ×2 (08:31→17:40)
--- NOTE | 2022-03-16 08:48 | PC.NURSE ---
[id number] Introductions were made, then consulted with patient to assess needs related to . Mother led the conversation with her?plans to feed?her infant and the?experience so far. Resources provided for inpatient and outpatient services using a resource guide and mom/baby guide. Mother voiced understanding of information and requests assistance to re-latch her . Mother works well with her with encouragement. Reviewed working with , breast, nipples and how to protect the nipples with an optimal deep latch, good positioning, and good hand washing. Encouraged understanding the benefits of skin to skin, responding to feeding cues, frequencies of feeding 8-12 times in 24 hours (approximately 2-3 hours), duration of feedings, milk production, intake/output feeding sheet and signs of adequate intake encouraging swallowing at the breast. Reviewed positioning and alignment, supporting breast, off-centered (asymmetrical latch) and leading with the chin with big open wide gape. latched optimally to the right breast in football position. Infant was able to maintain latch without discomfort to mother. Nipple care reviewed with optimal latch, good positioning, and to have clean hands when touching the nipple/breast. Resources used to facilitate learning were used from the mom and baby guide. Mother voiced understanding of the education shared, calling for assistance if the infant does not latch or if there is discomfort with . Primary RN in the room after consult.
--- NOTE | 2022-03-16 09:48 | P.PNAN_ITS ---
Anes - Prog Note Post-Op Date/Time: 03/16/22 09:48 Cardiovascular status: normal Respiratory status: normal Airway patency: baseline Mental status: baseline Post-Op hydration status: normal Vital Signs: Last Vital Signs Temp 36.4 C 03/16/22 08:15 Pulse 88 03/16/22 08:15 Resp 16 03/16/22 08:15 BP 129/83 03/16/22 08:15 Pulse Ox 100 03/16/22 08:15 O2 Del Method Room Air 03/16/22 05:41 O2 Flow Rate 3 03/15/22 13:08 Pain Score (VAS): 0 I/O: Intake & Output 03/15/22 03/16/22 03/16/22 23:59 07:59 15:59 Intake Total 740 1900 Output Total 175 275 Balance 565 1625 Laboratory Tests 03/16/22 04:38 03/16/22 04:38 WBC 12.6 H RBC 4.53 Hgb 9.9 L Hct 32.7 L MCV 72.2 L MCH 21.9 L MCHC 30.3 L RDW 15.4 H Plt Count 212 MPV 13.1 H Immature Gran % (Auto) 0.6 H Neut % (Auto) 77.4 H Lymph % (Auto) 14.1 L [place] % (Auto) 7.5 Eos % (Auto) 0.2 Baso % (Auto) 0.2 Lymph # (Auto) 1.77 [place] # (Auto) 0.9 H Eos # (Auto) 0.0 Baso # (Auto) 0.0 Abs Immat Gran (auto) 0.07 H Absolute Neuts (auto) 9.8 H Absolute Nucleated RBC 0.0 Nucleated RBC % 0.0 Platelet Estimate Adequate % Immature Plt Fraction 5.1 Hypochromasia 2+ Anisocytosis 2+ Microcytosis 2+ Macrocytosis 1+ Post-procedural complaints: none Patient Feedback: Patient satisfied with anesthetic care.
--- NOTE | 2022-03-16 09:49 | WPDANLDPN2 ---
Anes-Prog Note L&D Date/Time: 03/16/22 09:49 Comfortable throughout: section Neuraxial method: spinal Epidural/Spinal procedure site: clean & non-tender Neuro status: Neuro function grossly intact. Cardiovascular status: normal Respiratory status: normal Airway patency: baseline Mental status: baseline Post-Op hydration status: normal Vital Signs: Last Vital Signs Temp 36.4 C 03/16/22 08:15 Pulse 88 03/16/22 08:15 Resp 16 03/16/22 08:15 BP 129/83 03/16/22 08:15 Pulse Ox 100 03/16/22 08:15 O2 Del Method Room Air 03/16/22 05:41 O2 Flow Rate 3 03/15/22 13:08 Pain score (VAS): 0 I/O: Intake & Output 03/15/22 03/16/22 03/16/22 23:59 07:59 15:59 Intake Total 740 1900 Output Total 175 275 Balance 565 1625 Post-procedural complaints: none Patient feedback: Patient satisfied with anesthetic care.
--- NOTE | 2022-03-16 09:50 | WPDANLDNPN2 ---
Anes-Prog Note L&D-Neuraxial Date/Time: 03/16/22 09:50 Neuraxial medications: intrathecal PF morphine Opiod-related complaints: none Patient feedback: Patient satisfied with post-operative pain management.
[2022-03-16 20:55] VITALS: BP 134/78; PULSE 88; RESP 16; TEMP 36.2
[2022-03-17] MEDS: IBUPROFEN 600 MG TABLET PO ×4 (03:30→22:50)
[2022-03-17] MEDS: HYDROcodone/acetaminophen (*CRX) 5-325 MG TABLET 1 TAB PO ×7 (03:30→22:50)
--- NOTE | 2022-03-17 07:00 | PC.NURSE ---
mother is very tearful this morning, she is in pain, she states she hasn't slept much due to baby wanting to nurse every hour, she is afraid she isn't producing enough milk and she wants to know what she should do. We discussed feedings, and mother asked if she should supplement with formula. Talked to her about pumping now to see how much she is producing and then if it is a small amount if she wanted she could feed baby the expressed breastmilk and then supplement with formula so that baby would be satisfied and mother could get a couple of hours of sleep. She verbalized understanding and expresses that she would like to pump and then when baby comes back from the nursery assessment from the cash teller she will supplement with expressed breastmilk and formula.
[2022-03-17 07:40] VITALS: BP 145/87; PULSE 91; RESP 18; TEMP 36.4; O2SAT 100
--- NOTE | 2022-03-17 08:05 | P.PNOB_ITS ---
OB - PN: Subj Subjective Date/time seen: 03/17/22 08:05 Patient comments: no complaints, pain well controlled, incisional pain, tolerating diet and flatus present OB - PN: Obj Data Labs CBC & Chem 7: 03/16/22 04:38 OB - PN A/P Plan day: 2 Plan: routine care Comments: POD#2 LTCS - no problems, Time Spent With Patient Time: Total time spent is greater than 50% in coordination of care (as documented) at patient's floor/unit and/or counseling patient: Exam Const: General: comfortable, no acute distress and alert Resp: Effort & Inspection: normal respiratory effort Auscultation: no c rackles, no rales and no rhonchi Cardio: Rate: regular rate Heart sounds: no click, no murmurs and no rubs GI: Inspection: non-distended GI Palp: No Tenderness to palpation present (GI) Auscultation: normal bowel sounds Other: Incision - CDI Extrem: General: normal to inspection, no pedal edema and no calf tenderness
--- NOTE | 2022-03-17 08:05 | PM.OBDSVD ---
DS: Admitting Diagnosis Discharge Date 03/18/22 Admitting Diagnosis term OB - DS: Summary OB Procedures : NST and Ultrasound OB Procedures Intrapartum: OB Procedures: : None Peripartum Data Procedures: Procedures Operation Date: 03/15/22 12:00 Actual Procedure Side Surgeon p Repeat Section Rossy Butler MD Time Spent with Patient Time attestation: Total time spent providing and/or coordinating discharge services: DS: Data Data Completed and Pending Pending studies at discharge: Pending at discharge 03/15/22 16:09 Surgical [PTH] Routine Discharge Plan Discharge Discharging Clinician: Rossy Butler Patient Disposition: Home, Self-Care Activity: pelvic rest Diet: regular Discharge Instructions: Education: Mom and Baby Guide Given to: Mother Follow-Up: Call your delivering provider's office for an appointment to be seen in: 1 Week for incision check Mom and baby should come to the [facility] for the follow-up appointment. Appointment Date/Time: March 20, 2022 at 10:00 am What to expect at your follow-up visit: Blood Pressure Check Physical Assessment Call [phone] if you are unable to keep your appointment time. BREAST CARE: * Wear a snug supportive bra. * For engorgement discomfort: Breast Feeding: * Apply warm moist washcloths * Express milk as needed to relieve engorgement * Wear loose clothing Bottle Feeding: * May apply ice packs * For sore nipples: * Identify correct latch-on * Apply warm moist washcloths before and after nursing * Air dry nipples after nursing * May apply Lansinoh cream to nipples ABDOMINAL INCISION: (if applicable) * When showering, allow soap and water to run over the incision, but do not wash incision * Allow incision to air dry * Do NOT use lotions for powders on your incision EPISIOTOMY/PERINEAL CARE: * Until bleeding stops, use your ashlie bottle after urinating * Change your pad frequently throughout the day * No tub baths until seen by your physician - You may shower ACTIVITY: * Rest as much as possible. * Do not exercise or lift anything heavier than your baby (such as laundry or other children.) * Avoid stairs or driving as much as possible for about 2 weeks or util no longer taking narcotic pain reliever. * Do not put anything into the vagina. No douching, tampons, or sexual activity until seen by physician. NOTIFY PHYSICIAN IF YOU HAVE ANY QUESTIONS OR IF ANY OF THE FOLLOWING SYMPTOMS OCCUR: * If your incision becomes red, swollen, or more painful than what you have experienced in the hospital. * If your vaginal bleeding becomes foul smelling. * If your vaginal bleeding becomes more heavy than a period or if your bleeding changes from pink to bright red. However, you may pass an occasional walnut-sized clot once or twice for the first week . * If you experience a sharp, shooting pain in your calves. * If you discover a hard, reddened area on your breast or if you experience flu-like symptoms. DIET: * Eat regular, well-balanced meals. * Drink plenty of fluids daily. If , drink to thirst. Patient Instructions: Antibiotic Form, Caring for Your Baby (DC), and Breast Engorgement (DC), (DC) Stand Alone Forms: General Discharge Information Follow-up/Referrals: Rossy Butler MD [Physician] - Discharge Medications: New hydrocodone-acetaminophen 5-325 mg tablet 1 tablet PO Q4H PRN (Reason: pain) Qty: 25 0RF Continued albuterol 90 mcg/actuation Aerosol 90 mcg INHALATION Q4H PRN (Reason: Wheezing) prenat.vits,eben,[id number] Tablet 1 tablet PO DAILY ferrous sulfate 140 mg (45 mg iron) Tablet Extended Release 140 mg PO DAILY Rx Instructions: PT UNSURE OF DOSAGE/STRENGTH c
[2022-03-17] MEDS: POLYSACCHARIDE IRON COMPLEX 150 MG CAPSULE PO ×2 (09:48→16:42)
[2022-03-17] MEDS: DOCUSATE SODIUM 100 MG CAPSULE PO ×2 (09:48→16:42)
[2022-03-17] MEDS: MULTIVIT/MIN/PREN/FOL AC/IRON TABLET 1 TAB PO (09:48)
[2022-03-17 19:40] VITALS: BP 136/84; PULSE 80; RESP 16; TEMP 36.4
[2022-03-18] MEDS: IBUPROFEN 600 MG TABLET PO (04:51)
[2022-03-18] MEDS: SIMETHICONE 80 MG TAB.CHEW PO ×2 (04:51→08:53)
[2022-03-18] MEDS: HYDROcodone/acetaminophen (*CRX) 5-325 MG TABLET 1 TAB PO ×2 (04:51→08:53)
--- NOTE | 2022-03-18 08:39 | PM.OBPNVD ---
OB - PN: Subj Subjective Date/time seen: 03/18/22 08:39 Patient comments: no complaints, pain well controlled, incisional pain, tolerating diet and flatus present OB - PN: Obj Data Labs CBC & Chem 7: 03/16/22 04:38 OB - PN A/P Plan day: 4 Plan: routine care, discharge home and other Comments: Incision check in one week. Given precautions Time Spent With Patient Time: Total time spent is greater than 50% in coordination of care (as documented) at patient's floor/unit and/or counseling patient: Exam Const: General: comfortable, no acute distress and alert Resp: Effort & Inspection: normal respiratory effort Auscultation: no crackles, no rales and no rhonchi Cardio: Rate: regular rate Heart sounds: no click, no murmurs and no rubs GI: Inspection: non-distended GI Palp: No Tenderness to palpation present (GI) Auscultation: normal bowel sounds Other: Incision - CDI Extrem: General: normal to inspection, no pedal edema and no calf tenderness
[2022-03-18] MEDS: DOCUSATE SODIUM 100 MG CAPSULE PO (08:52)
[2022-03-18] MEDS: MULTIVIT/MIN/PREN/FOL AC/IRON TABLET 1 TAB PO (08:53)
[2022-03-18] MEDS: POLYSACCHARIDE IRON COMPLEX 150 MG CAPSULE PO (08:53)
[2022-03-18 08:55] VITALS: BP 133/82; PULSE 80; RESP 18; TEMP 36.4; O2SAT 100
[2022-03-20 10:34] VITALS: BP 150/90; PULSE 89; RESP 20; TEMP 36.9; O2SAT 100
== END 2022-03-18 12:56 | disposition home or self-care (01) | DRG 540 ==
LOC: ANHLDR 10:05 → ANHOB2 16:18
PROVIDERS: Admitting Provider Obstetrics & Gynecology; Visit Provider Obstetrics & Gynecology
PROC: 10D00Z1 Extraction of Products of Conception, Low, Open Approach (ICD-10-PCS; CPT 59514; principal; 2022-03-15 12:00)
DX: O34.219 Maternal care for unspecified type scar from previous cesarean delivery (principal); E66.01 Morbid (severe) obesity due to excess calories; O10.92 Unspecified pre-existing hypertension complicating childbirth; O99.214 Obesity complicating childbirth; Z3A.38 38 weeks gestation of pregnancy; Z37.0 Single live birth
CPT/HCPCS: 36415; 85025; 85027; 85055; 86592; 86850; 86900; 86901; 88307; A9270; J0131; J0330; J0690; J1100; J1885; J2250; J2274; J2370; J2405; J2590; J2704; J3480; J7120

== ENCOUNTER 2022-03-22 20:34 | Inpatient (IN) | payer OTHER, SELFPAY ==
[2022-03-22] VITALS (23 sets, daily range): BP systolic 145–187; BP diastolic 84–115; PULSE 81–96; RESP 11–24; TEMP 36.6; O2SAT 100
--- NOTE | ~2022-03-22 | US_ITS ---
EXAMINATION: US venous doppler [facility] DATE: 03/23/2022 10:27 INDICATION: Lower limb edema. TECHNIQUE: Grayscale ultrasound images without and with compression and Doppler ultrasound images of the bilateral lower extremity veins were obtained. COMPARISON: None. FINDINGS: The visualized portions of right common femoral vein, profunda (deep) femoral vein, femoral vein, pop liteal vein, peroneal veins, posterior tibial veins, and greater saphenous vein outflow are patent. The visualized portions of left common femoral vein, profunda femoral vein, femoral vein, popliteal v ein, posterior tibial veins, and greater saphenous vein outflow are patent. There is thrombus in the left peroneal veins. IMPRESSION: 1. Deep vein thrombosis involving the left peroneal veins. I called this result to Gwendolyn Sexton. Reviewed, dictated and finalized at location A. IMPRESSION: 1. Deep vein thrombosis involving the left peroneal veins. I called this resul t to Gwendolyn Sexton.
--- NOTE | ~2022-03-22 | CT_ITS ---
EXAMINATION: CTA chest PE protocol DATE: 03/22/2022 23:57 INDICATION: Shortness of breath. . TECHNIQUE: Computed tomography angiography (CTA) of the chest was performed with 100 mL Omnipaque-350 intravenous contrast timed to evaluate the pulmonary arteries. Coronal maximum intensity projection 3D-reconstructions were created by the technologist. Automated exposure control and iterative reconst ruction technique were employed. The dose-length product was 1018.72 mGy-cm. COMPARISON: None. FINDINGS: The lungs demonstrate mild atelectasis. There is smooth septal thickening in the inferior l ungs associated with groundglass opacities, consistent with pulmonary edema. No pleural effusion. Car diomegaly is noted. No pericardial effusion. There is no pulmonary embolus. There are gallstones in t he gallbladder. There is mild thoracic spondylosis. IMPRESSION: 1. No pulmonary embolus. 2. Mild pulmonary edema. 3. Cardiomegaly. 4. Cholelithiasis. Reviewed, dictated and finalized at location A.
--- NOTE | ~2022-03-22 | XR_ITS ---
EXAMINATION: XR chest 1V portable Exam Date/Time: 03/22/2022 22:15 CDT HISTORY: sob, 1 WEEK POST Comparison: None available. RESULT: Lines, tubes, and devices: None. Lungs and pleura: Clear. Cardiomediastinal silhouette: Stable. Other: No acute osseous or upper abdominal finding. IMPRESSION: No acute cardiopulmonary process. Reviewed, dictated and finalized at location K.
--- NOTE | 2022-03-22 21:38 | ECG_ITS ---
Measurements Intervals [place] Rate: 88 P: 42 NM: 168 QRS: 8 QRSD: 93 T: 37 QT: 362 QTc: 438 Interpretive Statements SINUS RHYTHM DELAYED PRECORDIAL R/S TRANSITION BORDERLINE ECG COMPARED TO ECG 11/13/2021 12:43:07 NO SIGNIFICANT CHANGES Electronically Signed On 03-23-2022 6:51:54 CDT by Evelio Sherwood D.O.
[2022-03-22 21:51] LABS: Hematocrit 32.2 % (37.0-47.0); Hemoglobin 9.6 g/dL (12.0-15.0); Mean Corpuscular HGB Conc 29.8 g/dl (32-36); Mean Corpuscular Hemoglobin 21.6 pg (26-34); Mean Corpuscular Volume 72.5 fl (80-100); Mean Platelet Volume 10.7 fl (7.4-10.4); Platelet Count Result 274 k/mm3 (150-375); Red Blood Count 4.44 M/mm3 (4.2-5.4); Red Cell Distribution Width 15.1 % (11.5-14.5); White Blood Count 6.8 K/mm3 (4.5-10.0)
[2022-03-22 22:03] LABS: Appearance Urine Clear (Clear); Bilirubin Urine Negative (Negative); Blood Urine 2+ (Negative); Color Urine Yellow (Yellow); Glucose Urine UA Negative (Negative); Ketones Urine Negative (Negative); Leukocyte Esterase Ur Trace LEU/UL (Negative); Nitrate Urine Negative (Negative); Protein Urine Negative (Negative); Specific Grav Ur 1.015 (1.001-1.035); Urobilinogen Urine 0.2 mg/dL (<2.0); pH Urine 6.5 (5.0-9.0)
[2022-03-22 22:04] LABS: Partial Thromboplastin Time 36.1 SECONDS (22.3-36.8)
--- NOTE | 2022-03-22 22:08 | ED.RECABL ---
HPI - Recheck/Abnormal Lab/Rx General Chief Complaint: Recheck/Abnormal Lab/Rx <Tamela Alvarenga PA-C - Last Filed: 03/23/22 02:31> Stated Complaint: recent c-sec/ SOB, HTN PAIN IN BOTH LEGS <Tamela Alvarenga PA-C - Last Filed: 03/23/22 02:31> Time Seen by Provider: 03/22/22 21:42 <Tamela Alvarenga PA-C - Last Filed: 03/23/22 02:31> Source: patient <Tamela Alvarenga PA-C - Last Filed: 03/23/22 02:31> Mode of arrival: ambulatory <Tamela Alvarenga PA-C - Last Filed: 03/23/22 02:31> Limitations: no limitations <RADHA Huffman Last Filed: 03/23/22 02:31> History of Present Illness HPI narrative: This is a 36-year-old female that presents to the emergency department for hypertension noted today. Reports she delivered by section about a week ago. Reports today at her follow-up appointment her blood pressure was noted to be elevated at her OB office. She continue to monitor it at home and it was persistently elevated. She also has been short of breath since delivery and had swelling in her legs. Denies chest pain or abdominal pain. <Tamela Alvarenga PA-C - Last Filed: 03/23/22 02:31> Related Data Home Medications: Home Medications Medication Instructions Recorded Confirmed albuterol 90 mcg/actuation aerosol 90 mcg inhalation Q4H PRN Wheezing 03/02/22 03/23/22 inhaler cholecalciferol (vitamin D3) 100 4,000 unit PO DAILY 03/02/22 03/23/22 mcg (4,000 unit) capsule ferrous sulfate 140 mg (45 mg 140 mg PO DAILY 03/02/22 03/02/22 iron) tablet,extended release prenat.vits,eben,[id number] 1 tablet PO DAILY 03/02/22 03/23/22 <RADHA Huffman Last Filed: 03/23/22 02:31> Allergies/Adverse Reactions: Allergies Allergy/AdvReac Type Severity Reaction Status Date / Time No Known Allergies Allergy Verified 03/22/22 21:28 <Tamela Alvarenga PA-C - Last Filed: 03/23/22 02:31> Review of Systems Review of Systems: CONSTITUTIONAL: Denies fever EYES: Denies visual changes CARDIOVASCULAR: Reports edema. Denies chest pain RESPIRATORY: Reports dyspnea. GASTROINTESTINAL: Denies abdominal pain NEUROLOGIC: Denies numbness, or weakness. <Tamela Alvarenga PA-C - Last Filed: 03/23/22 02:31> All systems reviewed & are unremarkable except as noted in HPI and below <Tamela Alvarenga PA-C - Last Filed: 03/23/22 02:31> PMFSH Past Medical History Medical History: Medical History (Updated 03/23/22 @ 02:31 by Tamela Alvarenga PA-C) History of asthma HTN (hypertension) Morbid obesity <Tamela Alvarenga PA-C - Last Filed: 03/23/22 02:31> Surgical History Surgical History: Surgical History (Updated 03/15/22 @ 11:11 by Rossy Butler MD) History of section <Tamela Alvarenga PA-C - Last Filed: 03/23/22 02:31> Family History Family History: Family History Grandparent Hypertension Diabetes mellitus Mother Hypertension Diabetes mellitus <Tamela Alvarenga PA-C - Last Filed: 03/23/22 02:31> Social History Social History: Social History Smoking status: Never smoker Second hand tobacco smoke exposure: No Alcohol intake: never Substance use: never Spiritual care concerns: No <Tamela Alvarenga PA-C - Last Filed: 03/23/22 02:31> Exam Narrative: GENERAL: Well-appearing, well-nourished, and in no acute distress. HEAD: Normocephalic, atraumatic. EYES: PERRLA and EOMI. ENT: Nares clear, no rhinorrhea or epistaxis. Mucous membranes moist. Oropharynx without tonsillar hypertrophy exudate or other lesions. NECK: Supple. No adenopathy or masses. CHEST: Clear to auscultation. No respiratory distress. No wheezes rales or rhonchi HEART: Regular rate and rhythm. No murmur heard. Normal peripheral pulses. ABDOMEN: Soft, nontender, nondistended, normal active bowel sounds. EXTREMITIES: Normal range of motion.
[2022-03-22 22:16] LABS: Bacteria Urine Trace /hpf; Mucus Urine Rare /lpf; Squamous Epithelial Cell Urine Rare /hpf (Few)
[2022-03-22 22:18] LABS: Add Urine Microscopic? YES
[2022-03-22] MEDS: LABETALOL HCL INJ 100 MG/20 ML VIAL 20 MG IV PUSH (22:24)
[2022-03-22 22:25] LABS: Eosinophils Absolute Manual 0.06 K/mm3 (0.02-0.5); Eosinophils Percent Manual 1 % (0-4); Lymphocytes Absolute Manual 1.49 K/mm3 (1.1-4.5); Monocytes Absolute Manual 0.13 K/mm3 (0.1-0.90); Monocytes Percent Manual 2 % (3-9); Neutrophils Percent Manual 75 % (46-73); Total Cells Counted 100
[2022-03-22 22:26] LABS: Anisocytosis 2+ (NORMAL); Microcytosis 2+ (NORMAL); Ovalocytes 1+ (NORMAL); Platelet Estimate Adequate (Adequate); Poikilocytosis 2+ (NORMAL); Schistocytes 1+ (NORMAL); Target Cells 1+ (NORMAL); Tear Drop Cells 1+ (NORMAL)
[2022-03-22 22:27] LABS: Atypical Lymphocytes Present; Burr Cells 1+ (NORMAL); Crenated RBC 1+ (NORMAL); Hypersegmented Neutrophils Present; Hypochromasia 2+ (NORMAL); Smudge Cells FEW; Stomatocytes 1+ (NORMAL)
--- NOTE | 2022-03-22 22:38 | PC.NURSE ---
While given IVP of order labetalol pt BP dropped to 146/94. 14mg given, stopped. FLOYD Rapp notified of drop and verbal order to hold rest of dose at this time. PT denies any new s/s at this time.
[2022-03-22 22:52] LABS: Alanine Aminotransferase 22 U/L (6-35); Albumin Level 3.4 g/dL (3.5-5.1); Alkaline Phosphatase 99 U/L (38-126); Anion Gap 9 mmol/L (8-16); Aspartate Amino Transferase 28 U/L (14-36); Bilirubin,Total 0.3 mg/dL (0.2-1.3); Blood Urea Nitrogen 11 mg/dL (7-17); Calcium 8.5 mg/dL (8.4-10.2); Carbon Dioxide 24 mmol/L (22-30); Chloride 106 mmol/L (98-107); D Dimer 2.18 ug/mL (<0.48); Estimated Glomerular Filt Rate > 60; Glucose 81 mg/dL (65-110); Potassium 3.6 mmol/L (3.4-5.0); Sodium 139 mmol/L (137-145); Uric Acid 5.9 mg/dL (2.5-7.5)
[2022-03-23] VITALS (40 sets, daily range): BP systolic 147–196; BP diastolic 94–121; PULSE 80–114; RESP 14–33; TEMP 36.6–36.8; O2SAT 98–100; BMI 65.4
[2022-03-23] MEDS: LABETALOL HCL INJ 100 MG/20 ML VIAL 20 MG IV PUSH ×2 (00:45→04:38)
[2022-03-23] MEDS: MAGNESIUM SULF 4 GM/WATER100ML 4 GM/100 ML BAG IVPB (01:25)
[2022-03-23 01:38] LABS: Magnesium 1.7 mg/dL (1.6-2.3)
[2022-03-23 01:47] LABS: NT Pro B Type Natriuretic Pept 104 pg/mL (5-100)
--- NOTE | 2022-03-23 03:13 | PC.NURSE ---
PT giving turkey sandwich, vanilla ice cream and phan crackers per pt request at this time.
[2022-03-23] MEDS: hydrALAZINE HCL 20 MG/ML VIAL 10 MG IV PUSH ×3 (03:39→17:01)
[2022-03-23] MEDS: MAGNESIUM SULF 20GM/WATER500ML 500 ML 50 MG IV CONT ×2 (04:17→14:52)
[2022-03-23] MEDS: IBUPROFEN 600 MG TABLET PO (04:20)
--- NOTE | 2022-03-23 05:21 | ADMIMU ---
This patient, Diana Alex, was admitted to IMU status, and placed in Intensive Care Unit-9. Patient/family oriented to hospital policies and general routines including ID bracelet, bed and alarms, visiting hours, pain management, procedures, bathroom and other care routines, personal items, smoking policy, room service/diet, and visiting hours. Valuables list has been completed. Information on how to activate the Rapid Response Team has been discussed. Patient/Family are encouraged to report perceived risks to care and to ask questions if they do not understand what they are told or what they should do.
[2022-03-23] MEDS: LABETALOL HCL 100 MG TABLET 300 MG PO (06:25)
[2022-03-23 07:09] LABS: Magnesium 3.3 mg/dL (1.6-2.3)
--- NOTE | 2022-03-23 08:40 | PM.IMHP ---
H&P: HPI History of Present Illness Date/Time: 03/23/22 08:40 Chief Complaint: elevated blood pressure Narrative: this patient is a 36-year-old female who presents to the office yesterday afternoon. She is 1 week from a delivery. She was delivered for chronic or gestational hypertension. She had marked edema yesterday. Her blood pressure is reasonably good. We agreed to observe her. She denied any headache, blurry vision, epigastric pain. Denies any shortness of breath. She was instructed to get a blood pressure cuff and monitor her blood pressures. Later that evening she had a markedly elevated blood pressures and came to the emergency department and had severe range blood pressures. She is admitted the ICU for monitoring and magnesium sulfate IV. Continuous. On CT scan cardiomegaly was noted. Dilated cardiac vessels were noted. Review of Systems Review of Systems: All systems reviewed & are unremarkable except as noted in HPI and below Constitutional: Constitutional: Denies chills, Denies fatigue, Denies fever(s) and Denies weakness Eyes: Eyes: Denies blurry vision, Denies change in vision, Denies loss of peripheral vision, Denies loss of vision, Denies other visual disturbances and Denies eye pain ENT: Denies vertigo, Denies dizziness, Denies hearing loss, Denies mouth pain, Denies nasal obstruction, Denies neck mass and Denies neck pain Cardiovascular: Cardiovascular: Denies chest pain, Denies diaphoresis, Denies syncope, Denies leg edema and Denies dyspnea Respiratory: Respiratory: Denies chest congestion, Denies cough, Denies hemoptysis, Denies dyspnea and Denies wheezing Gastrointestinal: Gastrointestinal: Denies abdominal pain, Denies constipation, Denies diarrhea, Denies nausea and Denies vomiting Genitourinary: Genitourinary: Denies hematuria, Denies change in libido, Denies nocturia, Denies genital lesions, Denies flank pain and Denies urinary urgency Musculoskeletal: Musculoskeletal: Denies abnormal gait, Denies back pain, Denies myalgias, Denies arthralgias, Denies joint swelling, Denies muscle weakness and Denies neck pain Integumentary/Breasts: Skin/Breast: Denies swelling, Denies breast pain, Denies breast mass, Denies dry skin, Denies nipple discharge, Denies unusual bruising and Denies jaundice Neurologic: Denies Neuro-related abnormal movements, Denies Abnormal speech present, Denies abnormal gait, Denies behavioral changes, Denies confusion, Denies vertigo, Denies dizziness, Denies syncope, Denies loss of vision, Denies memory loss, Denies convulsions and Denies weakness Psychiatric: Psychiatric: Denies abnormal sleep pattern, Denies behavioral changes, Denies change in libido, Denies confusion, Denies depression, Denies anhedonia and Denies memory loss Endocrine: Endocrine: Reports no additional endocrine complaints, Denies change in libido and Denies fatigue Hematologic/Lymphatic: Hematologic/Lymphatic: Reports no additional hematologic/lymphatic complaints Allergic/Immunologic: Allergic/Immunologic: Reports no additional allergic/immunologic complaints and Denies wheezing PMFSH Past Medical History Medical History (Updated 03/23/22 @ 08:43 by Rossy Butler MD) History of asthma HTN (hypertension) Morbid obesity Surgical History Surgical History (Updated 03/15/22 @ 11:11 by Rossy Butler MD) History of section Family History Family History Grandparent Hypertension Diabetes mellitus Mother Hypertension Diabetes mellitus Social History Social History Smoking status: Never smoker Second hand tobacco smoke exposure: No Alcohol intake: never Substance use: never Spiritual care concerns: No Meds Home Medications and Allergies Home Medications Medication Instructions Recorded Confirmed Type albuterol 90 mcg/actuation aerosol
[2022-03-23] MEDS: ENALAPRIL MALEATE 5 MG TABLET PO (10:29)
--- NOTE | 2022-03-23 11:09 | PM.CNCAR ---
Assessment and Plan Assessment and plan (1) Preeclampsia in period: Code(s): O14.95 - Unspecified pre-eclampsia, complicating the puerperium Status: Acute (2) Cardiomegaly: Code(s): I51.7 - Cardiomegaly Status: Acute (3) Chronic hypertension affecting : Code(s): O10.919 - Unspecified pre-existing hypertension complicating , unspecified trimester Status: Acute Plan Continue Labetalol. Given continued elevated blood pressures, recommend to start Enalapril, which can be used during . If additional blood pressure control needed, can also start Spironolactone, which is okay to use with . Hydralazine/Nitrates okay with as well. Will follow up on echocardiogram results. If LVEF is reduced, then concern she has peripartum cardiomyopathy. Loop diuretics can be used with as well, however, after discussion with Dr. Butler, if this is preeclampsia, then diuretics are generally not recommended as these patients tend to be intravascularly depleted. History of Present Illness History of Present Illness Consult date/time: 03/23/22 11:09 Requesting physician: Tamela Alvarenga PA-C Consult reason: hypertension Reason For Visit: Preeclampsia,Cardiomegaly,Hypertensive Urgency Narrative: Patient is a 36-year-old female who is admitted for preeclampsia. Patient had a delivery on last Thursday 03/15. She was seen in OB clinic yesterday afternoon. Was noted to have significant lower extremity edema. BP in clinic was reasonable. Patient instructed to monitor her blood pressure at home. Patient reported significant blood pressure elevation, and came to the ED for further evaluation last night. Patient reports this is her third baby. Prior two children were delivered via as well. No cardiac issues with prior pregnancies. During this , she developed gestational hypertension mid way during . No prior issues with hypertension. No chest pain. Family history noted for history of hypertension, no other cardiac issues. Patient underwent CTA yesterday which showed no PE, cardiomegaly, and pulmonary edema. Venous Duplex pending. Echo ordered and pending. Patient states she would like to breastfeed. Review of Systems Review of Systems: All systems reviewed & are unremarkable except as noted in HPI and below (HPI) [facility] Past Medical History Medical History History of asthma HTN (hypertension) Morbid obesity Surgical History Surgical History History of section Family History Family History Grandparent Hypertension Diabetes mellitus Mother Hypertension Diabetes mellitus Social History Social History Smoking status: Never smoker Second hand tobacco smoke exposure: No Alcohol intake: never Substance use: never Spiritual care concerns: No Meds Home Medications and Allergies Home Medications Medication Instructions Recorded Confirmed Type albuterol 90 mcg/actuation aerosol 90 mcg inhalation Q4H PRN Wheezing 03/02/22 03/23/22 History inhaler cholecalciferol (vitamin D3) 100 4,000 unit PO DAILY 03/02/22 03/23/22 History mcg (4,000 unit) capsule ferrous sulfate 140 mg (45 mg 140 mg PO DAILY 03/02/22 03/02/22 History iron) tablet,extended release prenat.vits,eben,rrf-osrm-orozd 1 tablet PO DAILY 03/02/22 03/23/22 History Allergies Allergy/AdvReac Type Severity Reaction Status Date / Time No Known Allergies Allergy Verified 03/22/22 21:28 Vital Signs Vital Signs - 24 hr 03/22/22 20:50 03/22/22 21:39 03/22/22 22:24 Temperature 36.6 C Pulse Rate 87 86 84 Respiratory Rate 18 18 18 Blood Pressure 171/108 H 176/115 H 175/99 H Pulse Oxim
[2022-03-23] MEDS: ENOXAPARIN 100 MG/ML SYRINGE SUB-Q (12:12)
[2022-03-23] MEDS: ENOXAPARIN 60 MG/0.6 ML SYRINGE 47 MG SUB-Q (12:12)
[2022-03-23] MEDS: ACETAMINOPHEN 325 MG TABLET 650 MG PO (14:54)
[2022-03-23] MEDS: hydrALAZINE 12.5 MG TABLET PO ×2 (17:02→20:13)
[2022-03-23] MEDS: LABETALOL HCL 100 MG TABLET 400 MG PO (20:13)
[2022-03-24] VITALS (17 sets, daily range): BP systolic 129–158; BP diastolic 83–105; PULSE 83–104; RESP 15–23; TEMP 36.8–37; O2SAT 99–100
[2022-03-24] MEDS: ENOXAPARIN 60 MG/0.6 ML SYRINGE 47 MG SUB-Q ×3 (00:20→23:55)
[2022-03-24] MEDS: ENOXAPARIN 100 MG/ML SYRINGE SUB-Q ×3 (00:20→23:55)
[2022-03-24] MEDS: MAGNESIUM SULF 20GM/WATER500ML 500 ML 50 MG IV CONT (00:20)
[2022-03-24 04:27] LABS: Basophils Percent Auto 0.4 % (0.2-1.2); Eosinophils Absolute Auto 0.1 K/mm3 (0-0.3); Eosinophils Percent Auto 1.3 % (0-4.4); Hematocrit 32.8 % (37.0-47.0); Hemoglobin 9.8 g/dL (12.0-15.0); Immature Granulocyte Absolute 0.12 K/mm3 (0.00-0.031); Immature Granulocyte Percent A 1.7 % (0-0.5); Lymphocytes Absolute Auto 1.67 K/mm3 (0.9-3.2); Lymphocytes Percent Auto 23.3 % (18.3-44.2); Mean Corpuscular HGB Conc 29.9 g/dl (32-36); Mean Corpuscular Hemoglobin 21.5 pg (26-34); Mean Corpuscular Volume 72.1 fl (80-100); Mean Platelet Volume 9.9 fl (7.4-10.4); Monocytes Absolute Auto 0.4 K/mm3 (0.1-0.6); Monocytes Percent Auto 5.6 % (2.6-8.5); Neutrophils Absolute Auto 4.9 K/mm3 (1.3-6.7); Neutrophils Percent Auto 67.7 % (45.5-73.1); Platelet Count Result 252 k/mm3 (150-375); Red Blood Count 4.55 M/mm3 (4.2-5.4); Red Cell Distribution Width 14.9 % (11.5-14.5); White Blood Count 7.2 K/mm3 (4.5-10.0)
[2022-03-24 04:41] LABS: Alanine Aminotransferase 23 U/L (6-35); Albumin Level 3.3 g/dL (3.5-5.1); Alkaline Phosphatase 107 U/L (38-126); Anion Gap 4 mmol/L (8-16); Aspartate Amino Transferase 28 U/L (14-36); Bilirubin,Total 0.3 mg/dL (0.2-1.3); Blood Urea Nitrogen 8 mg/dL (7-17); Calcium 7.5 mg/dL (8.4-10.2); Carbon Dioxide 27 mmol/L (22-30); Chloride 108 mmol/L (98-107); Estimated Glomerular Filt Rate > 60; Glucose 114 mg/dL (65-110); Magnesium 5.4 mg/dL (1.6-2.3); Potassium 3.9 mmol/L (3.4-5.0); Sodium 139 mmol/L (137-145)
[2022-03-24] MEDS: ACETAMINOPHEN 325 MG TABLET 650 MG PO ×2 (05:44→18:12)
--- NOTE | 2022-03-24 06:00 | ECHO_ITS ---
Patient Info Name: Diana Alex Age: 36 years : 1985 Gender: Female Ht: 59 in Wt: 323 lbs BSA: 2.58 m2 HR: 86 bpm BP: 143 / 94 mmHg Heart Rhythm: Sinus Rhythm Exam Date: 03/24/2022 8:46 AM Exam Location: [facility] Patient Status: Outpatient Admit Date: 03/23/2022 Staff Ordering Physician: Tamela Alvarenga PA-C Software Educator: Osmar Colón RDCS, RT Attending Provider: Rossy Butler MD Referring Physician: Lyle DEUTSCH; Exam Type: CA echo doppler color flow Study Info Indications I51.7 - Cardiomegaly Complete two-dimensional, color flow and Doppler transthoracic echocardiogram is performed. Strain analysis performed. Summary 1. Complete two-dimensional, color flow and Doppler transthoracic echocardiogram is performed. 2. Normal left and right ventricular size and systolic function. 3. Normal-appearing cardiac valves. 4. No valvular regurgitant lesions identified. Left Ventricle Left ventricular chamber dimension is normal. Left ventricular systolic function is normal, estimated at 65-70%. The left ventricular diastolic function is normal. Right Ventricle Right ventricular chamber dimension is normal. Left Atria Left atrial chamber dimension is normal. Right Atria Right atrial chamber dimension is normal. Aortic Valve The aortic valve is normal. Pulmonic Valve The pulmonic valve is not well visualized. Mitral Valve The mitral valve has normal leaflets. Tricuspid Valve The tricuspid valve leaflets are normal. Pericardium/Pleural The pericardium appears normal. Aorta The aortic root size at the sinus of Valsalva is normal. Left Ventricular Outflow Tract Name Value Normal LVOT 2D LVOT Diameter 2.0 cm LVOT Doppler LVOT Peak Gradient 7 mmHg LVOT Mean Gradient 4 mmHg LVOT VTI 24 cm LVOT VTI/AV VTI Ratio 0.7 LVOT Stroke Volume 76 ml LVOT CO 6.6 l/min LVOT CI 2.5 l/min/m2 Mitral Valve Name Value Normal MV Doppler MV Decel [place] 554 cm/s2 MV PHT 61 ms MV Area (PHT) 3.6 cm2 4.0-5.0 MV Diastolic Function MV E Peak Velocity 116 cm/s MV A Peak Velocity 80 cm/s MV E/A 1.5 MV Decel Time 210 ms MV Annular TDI MV E/e' (Septal) 11.5 <=8.0 MV E/e' (Lateral) 9.9 <=8.0
--- NOTE | 2022-03-24 08:09 | PM.OBPNVD ---
OB - PN: Subj Subjective Date/time seen: 03/24/22 08:09 Patient voiding very frequently, denies pain in left leg, reports improved swelling in her lower extremities. Denies chest pain or shortness of breath. Denies Vision changes or epigastric pain. OB - PN: Obj Data Labs CBC & Chem 7: 03/24/22 04:16 03/24/22 04:16 Labs: Laboratory Results - last 24 hr 03/24/22 03/24/22 04:16 04:16 WBC 7.2 RBC 4.55 Hgb 9.8 L Hct 32.8 L MCV 72.1 L MCH 21.5 L MCHC 29.9 L RDW 14.9 H Plt Count 252 MPV 9.9 Immature Gran % (Auto) 1.7 H Neut % (Auto) 67.7 Lymph % (Auto) 23.3 Thomas % (Auto) 5.6 Eos % (Auto) 1.3 Baso % (Auto) 0.4 Lymph # (Auto) 1.67 Thomas # (Auto) 0.4 Eos # (Auto) 0.1 Baso # (Auto) 0.0 Abs Immat Gran (auto) 0.12 H Absolute Neuts (auto) 4.9 Absolute Nucleated RBC 0.0 Nucleated RBC % 0.0 Sodium 139 Potassium 3.9 Chloride 108 H Carbon Dioxide 27 Anion Gap 4 L BUN 8 Creatinine 0.80 Estim Creat Clear Calc Not Reportable Estimated GFR > 60 Glucose 114 H Calcium 7.5 L Magnesium 5.4 H Total Bilirubin 0.3 AST 28 ALT 23 Alkaline Phosphatase 107 Total Protein 6.0 L Albumin 3.3 L Imaging Radiologist's impression: Impressions Venous Doppler Study 03/23/22 11:18 IMPRESSION: 1. Deep vein thrombosis involving the left peroneal veins. I called this result to Gwendolyn Sexton. OB - PN A/P Assessment and Plan (1) Preeclampsia in period: Code(s): O14.95 - Unspecified pre-eclampsia, complicating the puerperium Status: Acute (2) Cardiomegaly: Code(s): I51.7 - Cardiomegaly Status: Acute (3) Deep venous thrombosis: Code(s): I82.409 - Acute embolism and thrombosis of unspecified deep veins of unspecified lower extremity Status: Acute (4) state: Code(s): Z39.2 - Encounter for routine follow-up Status: Acute Plan patient is a 36 week female who is 8 days from a delivery. She is preeclampsia, DVT, possible cardiomegaly. The echocardiogram was not performed yesterday. Echocardiogram hopefully pending today. If there is peripartum cardiomyopathy it appears to be stable. Her preeclampsia. Appears To be resolving with improved blood pressures and improved edema - fluid shifts from her tissue to her intravascular space. cardiology could consider loop diuretics now possibly. DVTs being treated with full anticoagulation. Lovenox was dosed by the pharmacy. Time Spent With Patient Time: Total time spent is greater than 50% in coordination of care (as documented) at patient's floor/unit and/or counseling patient: Review of Systems Review of Systems: All systems reviewed & are unremarkable except as noted in HPI and below Constitutional: Constitutional: Denies chills, Denies fatigue, Denies fever(s) and Denies weakness Eyes: Eyes: Denies blurry vision, Denies change in vision, Denies loss of peripheral vision, Denies loss of vision, Denies other visual disturbances and Denies eye pain ENT: Denies vertigo, Denies dizziness, Denies hearing loss, Denies mouth pain, Denies nasal obstruction, Denies neck mass and Denies neck pain Cardiovascular: Cardiovascular: Denies chest pain, Denies diaphoresis, Denies syncope, Denies leg edema and Denies dyspnea Respiratory: Respiratory: Denies chest congestion, Denies cough, Denies hemoptysis, Denies dyspnea and Denies wheezing Gastrointestinal: Gastrointestinal: Denies abdominal pain, Denies constipation, Denies diarrhea, Denies nausea and Denies vomiting Genitourinary: Genitourinary: Denies hematuria, Denies change in libido, Denies nocturia, Denies genital lesions, Denies flank pain and Denies urinary urgency Musculoskeletal: Musculoskeletal: Denies abnormal gait, Denies back pain, Denies myalgias, Denies arthralgias, Denies joint swelling, Denies m
[2022-03-24] MEDS: LABETALOL HCL 100 MG TABLET 400 MG PO ×2 (09:27→20:13)
[2022-03-24] MEDS: hydrALAZINE 12.5 MG TABLET PO ×4 (09:28→20:14)
[2022-03-24] MEDS: ENALAPRIL MALEATE 5 MG TABLET PO (10:19)
--- NOTE | 2022-03-24 10:39 | PC.NURSE ---
Spoke with Dr. Cedillo. Notified him Magnesium is DC'd and drip was stopped at 10:30. He stated to keep accurate urine output and continue to monitor.
--- NOTE | 2022-03-24 13:37 | PM.PNCARD ---
Progress Note: A&P Assessment and Plan (1) Preeclampsia in period: Code(s): O14.95 - Unspecified pre-eclampsia, complicating the puerperium Status: Acute (2) Cardiomegaly: Code(s): I51.7 - Cardiomegaly Status: Acute (3) Chronic hypertension affecting : Code(s): O10.919 - Unspecified pre-existing hypertension complicating , unspecified trimester Status: Acute Plan Blood pressures improved with addition of enalapril, but not at goal. Continue enalapril and labetalol. Will add spironolactone, which is okay to use with . Hydralazine/Nitrates okay with as well if additional BP control needed. Echo showed normal LVSF, will continue to treat for preeclampsia. OK to transfer out of ICU. Subjective Date/time seen: 03/24/22 13:37 Feels much, much better today. She thinks her swelling has improved, notices less tightness in ankles. Breathing is ok. No chest pain or palpitations. Review of Systems Review of Systems: All systems reviewed & are unremarkable except as noted in HPI and below (HPI) Exam Const: General: comfortable and no acute distress Neck: Neck: no JVD Resp: Effort & Inspection: normal respiratory effort Auscultation: crackles (Bibasilar crackles) Cardio: Rate: regular rate Rhythm: regular rhythm Heart sounds: no murmurs Skin: General skin exam: normal color Neuro: Speech: normal speech Extrem: Other: 2+ bilateral pitting edema Psych: Mental Status: mental status grossly normal Objective Data Vital Signs Vital Signs: Vital Signs - 24 hr 03/23/22 14:00 03/23/22 14:00 03/23/22 16:00 Temperature Pulse Rate 102 H 102 H 88 Respiratory Rate 18 Blood Pressure 177/104 H Pulse Oximetry 100 Oxygen Delivery 03/23/22 16:00 03/23/22 16:00 03/23/22 18:00 Temperature 36.6 C Pulse Rate 88 88 100 Respiratory Rate 17 17 Blood Pressure 177/103 H Pulse Oximetry 100 100 Oxygen Delivery Room Air 03/23/22 19:52 03/23/22 20:00 03/23/22 20:00 Temperature 36.8 C Pulse Rate 114 H 107 H 107 H Respiratory Rate 21 H 20 21 H Blood Pressure 176/99 H Pulse Oximetry 99 100 100 Oxygen Delivery Room Air 03/23/22 20:13 03/23/22 20:00 03/23/22 22:00 Temperature Pulse Rate 110 H 108 H 99 Respiratory Rate Blood Pressure Pulse Oximetry Oxygen Delivery 03/23/22 22:12 03/23/22 23:14 03/24/22 00:00 Temperature Pulse Rate 99 91 90 Respiratory Rate 19 22 H 23 H Blood Pressure 147/94 H Pulse Oximetry 100 100 99 Oxygen Delivery Room Air 03/24/22 00:00 03/24/22 00:00 03/24/22 02:00 Temperature 37.0 C Pulse Rate 95 90 104 H Respiratory Rate 20 Blood Pressure 129/86 Pulse Oximetry 100 Oxygen Delivery 03/24/22 03:32 03/24/22 04:00 03/24/22 04:00 Temperature 36.8 C Pulse Rate 91 91 93 Respiratory Rate 18 18 15 Blood Pressure 143/94 H Pulse Oximetry 99 99 100 Oxygen Delivery Room Air 03/24/22 04:00 03/24/22 06:00 03/24/22 08:00 Temperature 36.9 C Pulse Rate 89 92 96 Respiratory Rate 18 Blood Pressure 158/97 H Pulse Oximetry 100 Oxygen Delivery 03/24/22 09:27 03/24/22 11:56 03/24/22 08:00 Temperature 36.9 C Pulse Rate 95 92 89 Respiratory Rate 22 H Blood Pressure 153/91 H Pulse Oximetry 100 Oxygen Delivery 03/24/22 10:00 03/24/22 12:00 Temperature Pulse Rate 87 89 Respiratory Rate Blood Pressure Pulse Oximetry Oxygen Delivery Intake/Output Intake/Output: Intake & Output 03/21/22 03/22/22 03/23/22 03/24/22 23:59 23:59 23:59 23:59 Intake Total 2940 2240 Output Total 3825 5155 Balance -885 745 Meds/Results Medications: Active Medications Generic Name Dose Route Start Last Admin Trade Name Freq PRN Reason Stop Dose Admin Acetaminophen 650 mg 03/23/22 14:39 03/24/22 05:44 Acetaminophen 325 Mg Tablet PO 650 mg Q6H PRN Admini
--- NOTE | 2022-03-24 14:32 | PC.NURSE ---
Called and left Dr. Butler a Msg to call back. Left Wendy Lazo a message to call back regarding patient blood pressure.
[2022-03-24] MEDS: SPIRONOLACTONE 25 MG TABLET PO (15:19)
[2022-03-25] VITALS (15 sets, daily range): BP systolic 151–173; BP diastolic 102–106; PULSE 72–90; RESP 16–19; TEMP 36.6–36.9; O2SAT 98–100
--- NOTE | 2022-03-25 07:47 | PC.NURSE ---
Dr. Butler in room. Ordered extra 200 Labetalol po. one time for blood pressure.
--- NOTE | 2022-03-25 08:28 | PC.NURSE ---
Previous nurse note charted under wrong nurse by mistake. Dr. Butler in room and ordered an additional 200mg Labetalol, one time. for a total of 600 mg.
[2022-03-25] MEDS: LABETALOL HCL 100 MG TABLET 400 MG PO ×3 (08:33→17:42)
[2022-03-25] MEDS: LABETALOL HCL 100 MG TABLET 200 MG PO (08:33)
[2022-03-25] MEDS: SPIRONOLACTONE 25 MG TABLET PO (08:34)
[2022-03-25] MEDS: ENALAPRIL MALEATE 5 MG TABLET PO ×2 (08:34→20:28)
[2022-03-25] MEDS: hydrALAZINE 12.5 MG TABLET PO ×3 (08:34→17:43)
[2022-03-25] MEDS: ENOXAPARIN 60 MG/0.6 ML SYRINGE 47 MG SUB-Q (14:20)
[2022-03-25] MEDS: ENOXAPARIN 100 MG/ML SYRINGE SUB-Q (14:21)
--- NOTE | 2022-03-25 17:29 | PC.NURSE ---
Dr. Butler Called at 17:25 ordered to give patient 800 MG Labetalol now. Call him in 1 hour and report patient blood pressure.
--- NOTE | 2022-03-25 19:03 | PC.NURSE ---
Spoke with Dr. Butler notified him of Patients blood pressure of 140/91 after receiving 800mg labetalol, and [address] Butler ordered 800mg labetalol scgedule Q12HR begining at 06:00 and 18:00. will continue to monitor patient.
--- NOTE | 2022-03-25 19:35 | PM.PNCARD ---
Progress Note: A&P Assessment and Plan (1) Preeclampsia in period: Code(s): O14.95 - Unspecified pre-eclampsia, complicating the puerperium Status: Acute (2) Cardiomegaly: Code(s): I51.7 - Cardiomegaly Status: Acute (3) Chronic hypertension affecting : Code(s): O10.919 - Unspecified pre-existing hypertension complicating , unspecified trimester Status: Acute (4) Deep venous thrombosis: Code(s): I82.409 - Acute embolism and thrombosis of unspecified deep veins of unspecified lower extremity Status: Acute Plan Blood pressures still quite high taking enalapril, high-dose labetalol, Spironolactone and p.r.n. hydralazine. Increase enalapril to 5 mg q.8 hours. Hydralazine, Nitrates and nifedipine are okay with as well if additional BP control needed. Patient is spontaneously diuresing so will not add a stronger diuretic at this time. Echo showed normal LVSF, will continue to treat for preeclampsia. Found to have a below the knee DVT, now on Lovenox. Subjective Date/time seen: Follow-up for severe hypertension, and preeclampsia, . Echo showed normal left ventricular function. Also anticoagulated for below the knee DVT. 03/25/22 19:35 Feels a lot better. Still short of breath if she moves around much but none at rest. Edema is improving. No headache or chest pain.Blood pressure still difficult to control. Appears to be spontaneously diuresing, with 700 cc in and 2600 cc out today. Review of Systems Constitutional: Constitutional: Denies fever(s) Cardiovascular: Cardiovascular: Denies chest pain, Reports pedal edema ( Better), Denies lightheadedness and Denies dyspnea Respiratory: Respiratory: Denies chest congestion, Denies dyspnea and Reports dyspnea on exertion Gastrointestinal: Gastrointestinal: Denies abdominal pain, Denies hematochezia and Reports constipation ( off and on) Musculoskeletal: Musculoskeletal: Reports no additional musculoskeletal complaints Integumentary/Breasts: Skin/Breast: Reports system reviewed and no additional complaints, except as docu Neurologic: Reports system reviewed and no additional complaints, except as documented, Denies behavioral changes and Denies confusion Psychiatric: Psychiatric: Denies behavioral changes and Denies confusion Exam Narrative: pleasant young woman in bed, no distress Const: General: cooperative, healthy appearing and comfortable; No confusion Orientation/consciousness: oriented to person, patient oriented x3 and No confusion Other: obese Neck: Neck: supple Resp: Effort & Inspection: normal respiratory effort Auscultation: clear to auscultation bilaterally Cardio: Rate: regular rate Rhythm: regular rhythm GI: Inspection: normal to inspection GI Palp: No abdominal tenderness Neuro: General: oriented to person, patient oriented x3 and No confusion Extrem: Right lower extremity: edema Left lower extremity: edema Other: moderate pedal and lower extremity edema Psych: Appearance: grossly normal Mental Status: mental status grossly normal Objective Data Vital Signs Vital Signs: Vital Signs - 24 hr 03/24/22 20:13 03/24/22 20:00 03/24/22 20:00 Temperature 98.6 F Pulse Rate 92 84 88 Respiratory Rate 18 Blood Pressure 158/100 H Pulse Oximetry 100 Oxygen Delivery 03/24/22 22:00 03/24/22 23:52 03/25/22 00:00 Temperature 98.6 F Pulse Rate 92 89 87 Respiratory Rate 20 Blood Pressure 157/105 H Pulse Oximetry 100 Oxygen Delivery 03/25/22 00:00 03/25/22 02:00 03/25/22 04:00 Temperature Pulse Rate 72 Respiratory Rate Blood Pressure Pulse Oximetry Oxygen Delivery Room Air Room Air 03/25/22 04:00 03/25/22 04:00 03/25/22 06:00 Temperature 98.2 F Pulse Rate 77 73 87 Respiratory Rate 18 Blood Pressure 161/104 H Pulse Oximetry 98 Oxygen Delivery 03/25
[2022-03-26] VITALS (92 sets, daily range): BP systolic 143–169; BP diastolic 90–108; PULSE 70–105; RESP 12–30; TEMP 36.8–37.2; O2SAT 98–100
[2022-03-26] MEDS: ENOXAPARIN 60 MG/0.6 ML SYRINGE 47 MG SUB-Q ×2 (00:17→12:18)
[2022-03-26] MEDS: ENOXAPARIN 100 MG/ML SYRINGE SUB-Q ×2 (00:18→12:18)
[2022-03-26] MEDS: ENALAPRIL MALEATE 5 MG TABLET PO ×2 (04:05→12:18)
[2022-03-26 04:46] LABS: Potassium 3.7 mmol/L (3.4-5.0)
[2022-03-26] MEDS: LABETALOL HCL 100 MG TABLET 800 MG PO ×2 (06:25→15:14)
[2022-03-26] MEDS: SPIRONOLACTONE 25 MG TABLET PO (08:58)
--- NOTE | 2022-03-26 10:37 | PM.GYNPNOP ---
[employer] - A/P Assessment and plan (1) Deep venous thrombosis: Code(s): I82.409 - Acute embolism and thrombosis of unspecified deep veins of unspecified lower extremity Status: Acute Assessment and Plan: continue lovenox lovenox teaching today (2) Preeclampsia in period: Code(s): O14.95 - Unspecified pre-eclampsia, complicating the puerperium Status: Acute Assessment and Plan: s/p magnesium good diuresis increased enalapril to 5mg TID increased labetalol to 800 TID if BPs remain out of severe range today, may DC home this evening To check BPs at home twice daily and if not feeling well FU Dr Carrie bauman has appt. (3) Chronic hypertension affecting : Code(s): O10.919 - Unspecified pre-existing hypertension complicating , unspecified trimester Status: Acute Time Spent With Patient Time: Total time spent is greater than 50% in coordination of care (as documented) at patient's floor/unit and/or counseling patient: Time with patient: 15 - 25 minutes [employer]- PN:Subj Post-Op Subjective Date/time seen: 03/26/22 10:37 Interval history: BPs range 140s-160/90-103 last 24hrs. Cardiology increased enalapril to 5mg TID. She denies SOMMER/BV/EP. Good diuresis. Missing baby a lot. Subjective: patient has no complaints and patient desires discharge Review of Systems Review of Systems: All systems reviewed & are unremarkable except as noted in HPI and below (HPI) Exam Const: General: comfortable and no acute distress Resp: Effort & Inspection: normal respiratory effort Cardio: Rate: tachycardic (mild) Rhythm: regular rhythm GI: GI Palp: Yes Soft to palpation Auscultation: normal bowel sounds Other: incision CDI Neuro: General: oriented to person, oriented to place, oriented to time and moves all extremities Psych: Affect: normal affect [employer] - PN: Obj Data Vital Signs Vital Signs: Vital Signs - 24 hr 03/25/22 12:00 03/25/22 12:00 03/25/22 16:00 Temperature 98.4 F 98 F Pulse Rate 87 86 Respiratory Rate 16 16 Blood Pressure 154/106 H 160/103 H Pulse Oximetry 100 100 99 Oxygen Delivery Room Air 03/25/22 17:41 03/25/22 17:42 03/25/22 12:00 Temperature Pulse Rate 88 88 89 Respiratory Rate Blood Pressure Pulse Oximetry Oxygen Delivery 03/25/22 14:00 03/25/22 16:00 03/25/22 16:00 Temperature Pulse Rate 83 84 Respiratory Rate Blood Pressure Pulse Oximetry 100 Oxygen Delivery Room Air 03/25/22 18:00 03/25/22 20:00 03/25/22 20:00 Temperature 98.3 F Pulse Rate 88 87 Respiratory Rate 19 Blood Pressure 151/102 H Pulse Oximetry 100 100 Oxygen Delivery Room Air 03/25/22 20:00 03/25/22 22:00 03/26/22 00:00 Temperature Pulse Rate 88 88 Respiratory Rate Blood Pressure Pulse Oximetry 100 Oxygen Delivery Room Air 03/26/22 00:00 03/26/22 00:00 03/26/22 02:00 Temperature 98.9 F Pulse Rate 85 84 82 Respiratory Rate 17 Blood Pressure 146/90 H Pulse Oximetry 100 Oxygen Delivery 03/26/22 04:00 03/26/22 04:00 03/26/22 04:00 Temperature 98.8 F Pulse Rate 80 86 Respiratory Rate 21 H Blood Pressure 156/91 H Pulse Oximetry 98 100 Oxygen Delivery Room Air 03/26/22 06:00 03/26/22 06:24 03/26/22 06:25 Temperature Pulse Rate 85 74 78 Respiratory Rate Blood Pressure 156/95 H Pulse Oximetry Oxygen Delivery 03/26/22 08:00 03/26/22 08:00 03/26/22 08:00 Temperature 98.3 F Pulse Rate 80 83 83 Respiratory Rate 16 16 Blood Pressure 143/99 H Pulse Oximetry 100 Oxygen Delivery Room Air 03/26/22 10:00 03/26/22 00:45 03/26/22 01:00 Temperature Pulse Rate 105 H 92 82 Respiratory Rate 17 18 Blood Pressure Pulse Oximetry Oxygen Delivery 03/26/22 01:15 03/26/22 01:30 03/26/22 01:45 Temperature Pulse Rate 79 79 80 Respiratory Rate 17 18 15 Blood Pressure Pulse Oximetry Ox
--- NOTE | 2022-03-26 14:48 | PM.PNCARD ---
Progress Note: A&P Assessment and Plan (1) Preeclampsia in period: Code(s): O14.95 - Unspecified pre-eclampsia, complicating the puerperium Status: Acute (2) Chronic hypertension affecting : Code(s): O10.919 - Unspecified pre-existing hypertension complicating , unspecified trimester Status: Acute (3) Deep venous thrombosis: Code(s): I82.409 - Acute embolism and thrombosis of unspecified deep veins of unspecified lower extremity Status: Acute Plan Blood pressures improving, taking enalapril, high-dose labetalol, Spironolactone and p.r.n. hydralazine. Patient is spontaneously diuresing so will not add a stronger diuretic at this time. Hydralazine, Nitrates and nifedipine are okay with -- will add nifedipine 30 mg daily. Likely Okay for discharge later today, with close follow-up with either her OB Dr. Butler, ourselves. Likely her blood pressure will continue to improve and she can slowly come off some of these medications, however she may prove to have a degree of persistent hypertension. Fortunately her Echo showed normal LVSF, will continue to treat for preeclampsia. Found to have a below the knee DVT, now on Lovenox. Subjective Date/time seen: ?Follow-up for severe hypertension,? and preeclampsia, .? Echo showed normal left ventricular? function.? Also anticoagulated for below the knee DVT. 03/25/22:? Feels a lot better.? Still short of breath if she moves around much but none at rest.? Edema is improving.? No headache or chest pain.Blood pressure still difficult to control.? Appears to be? spontaneously diuresing, with 700 cc in and 2600 cc out today. Increased enalapril to 5 mg TID. 03/26/22 14:48 Feels much better, no problems. Swelling is improved. Good urine output. Hopes to be home soon.BPs generally better, 143-162/91-108 mmHg. Spontaneously diuresed 1900 cc's yesterday. Review of Systems Review of Systems: No chest pain, dizziness, shortness of breath. Edema improving. No problems getting out of bed to the bedside commode. No abdominal pain. Constitutional: Constitutional: Denies fever(s) Cardiovascular: Cardiovascular: Denies chest pain, Reports pedal edema ( Better), Denies lightheadedness, Denies dyspnea and Reports dyspnea on exertion Respiratory: Respiratory: Denies chest congestion, Denies dyspnea and Reports dyspnea on exertion Gastrointestinal: Gastrointestinal: Denies abdominal pain, Denies hematochezia and Reports constipation ( off and on) Musculoskeletal: Musculoskeletal: Reports no additional musculoskeletal complaints Integumentary/Breasts: Skin/Breast: Reports system reviewed and no additional complaints, except as docu Neurologic: Reports system reviewed and no additional complaints, except as documented, Denies behavioral changes and Denies confusion Psychiatric: Psychiatric: Denies behavioral changes and Denies confusion Exam Narrative: pleasant young woman in bed, no distress Const: General: cooperative, healthy appearing and comfortable; No confusion Orientation/consciousness: oriented to person, patient oriented x3 and No confusion Other: obese Neck: Neck: supple Resp: Effort & Inspection: normal respiratory effort Auscultation: clear to auscultation bilaterally Cardio: Rate: regular rate Rhythm: regular rhythm GI: Inspection: normal to inspection Neuro: General: oriented to person, patient oriented x3 and No confusion Extrem: Right lower extremity: edema Left lower extremity: edema Other: moderate pedal and lower extremity edema , improving Psych: Appearance: grossly normal Mental Status: mental status grossly normal Objective Data Vital Signs Vital Signs: Vital Signs - 24 hr 03/25/22 16:00 03/25/22 17:41 03/25/22 17:42 Temperature 98 F Pulse Rate 86 88 88 Respiratory Rate 16 Blood Pressure 160/103 H Pulse Oximetry 99 Oxygen Deliv
[2022-03-26] MEDS: NIFEdipine 30 MG TAB.ER.24 PO (15:49)
--- NOTE | 2022-04-16 19:26 | PM.DS ---
DS: Admitting Diagnosis Discharge Date 03/26/22 Admitting Diagnosis elevated blood pressure DS: Summary Hospital Course Hospital Course: this patient is a 36-year-old female was admitted the hospital approximately 6 days headache and elevated blood pressures. She was evaluated in the emergency department. It was soon to discern that she had preeclampsia and a DVT in her lower extremity. Imaging of her chest also suggested a enlarged heart. Later echocardiogram confirmed normal heart. She was observed for 3-4 days. It took considerable time to get her blood pressure is under control. Ultimately her blood pressures were controlled medically, her PT was treated with full anticoagulation. She was ultimately discharged on antihypertensive Lovenox. Her preeclampsia appeared to be room resolving early in the stay. Time Spent with Patient Time attestation: Total time spent providing and/or coordinating discharge services: Discharge Plan Discharge Attending physician on discharge: Mary Jo Amador Consulting providers: Tamela Alvarenga ; Mary Jo Amador ; Seamus Pop ; Live Paulino ; Evelio Sherwood ; Wendy Lazo ; Rayray Croft ; Gaston Oneil V. ; Lesly Kamara Discharging Clinician: Mary Jo Amador Patient Disposition: Home, Self-Care Activity: no driving and pelvic rest Diet: regular and low sodium Wound Care Instructions: incision open to air Discharge Instructions: check BP 2x per day. If BP >160/105, rest and repeat in 15 minutes. If still > 160/105, call office or patient registration supervisor doctor. Also call if BP <100/60. Patient Instructions: Enoxaparin (By injection) Stand Alone Forms: General Discharge Information Follow-up/Referrals: Rossy Butler MD [Primary Care Provider] - Keep Reg. Scheduled Appt. Rayray Croft MD [Physician] - (04/07 at 10:30. Please arrive at 10:15. ) Discharge Medications: New enalapril maleate 5 mg Tablet 5 mg PO Q8H Qty: 90 2RF spironolactone 25 mg Tablet 25 mg PO QAM Qty: 30 2RF labetalol 100 mg Tablet 800 mg PO Q8H Qty: 90 2RF enoxaparin [Lovenox] 60 mg/0.6 mL Syringe 47 mg subcut Q12H Qty: 60 2RF enoxaparin [Lovenox] 100 mg/mL Syringe 100 mg subcut Q12H Qty: 60 2RF nifedipine [Procardia XL] 30 mg Tablet Extended Release 24hr 30 mg PO QAM 30 Days Qty: 30 0RF Continued albuterol 90 mcg/actuation Aerosol 90 mcg INHALATION Q4H PRN (Reason: Wheezing) prenat.vits,eben,[id number] Tablet 1 tablet PO DAILY ferrous sulfate 140 mg (45 mg iron) Tablet Extended Release 140 mg PO DAILY Rx Instructions: PT UNSURE OF DOSAGE/STRENGTH cholecalciferol (vitamin D3) 100 mcg (4,000 unit) Capsule 4,000 unit PO DAILY Date of admission: 03/24/22 15:44 Primary Care Provider: Rossy Butler Admitting Provider: Rossy Butler Attending physician on admission: Rossy Butler Condition: Serious
== END 2022-03-26 19:24 | disposition home or self-care (01) | DRG 561 ==
LOC: ANHED 03-23 02:31 → ANHICU 03-23 04:45
PROVIDERS: Nurse Practitioner; Physician Assistant; Admitting Provider Obstetrics & Gynecology; Emergency Provider General Practice; PCP Obstetrics & Gynecology; Visit Provider Obstetrics & Gynecology
DX: O11.5 Pre-existing hypertension with pre-eclampsia, complicating the puerperium (principal); O87.1 Deep phlebothrombosis in the puerperium; E66.01 Morbid (severe) obesity due to excess calories; I82.452 Acute embolism and thrombosis of left peroneal vein; O10.93 Unspecified pre-existing hypertension complicating the puerperium; O99.893 Other specified diseases and conditions complicating puerperium; O99.215 Obesity complicating the puerperium; I16.0 Hypertensive urgency; I51.7 Cardiomegaly; J45.909 Unspecified asthma, uncomplicated; Z28.21 Immunization not carried out because of patient refusal
CPT/HCPCS: 36415; 71045; 71275; 80053; 81001; 83735; 83880; 84132; 84550; 85025; 85380; 85610; 85730; 93005; 93306; 93970; 96365; 96366; 96372; 96374; 96375; 96376; 99285; A9270; G0378; G0379; J0360; J1650; J2704; J3475; Q9967

== ENCOUNTER 2022-07-13 17:02 | Outpatient (CLI) | payer OTHER, SELFPAY ==
--- NOTE | ~2022-07-13 | US_ITS ---
US venous doppler [facility] DATE: 07/13/2022 17:59 INDICATION: Lower leg deep venous thrombosis (left peroneal veins) TECHNIQUE: Real-time and color flow imaging and Doppler analysis of the veins of the lower extremitie s COMPARISON: 03/23/2022 venous duplex examination of the lower extremities; deep venous thrombosis of t he left peroneal veins was identified on this prior examination. FINDINGS: The greater saphenous veins are patent. There is spontaneous and phasic flow and normal aug mentation and color flow signal and normal compression of the deep veins of both lower extremities, i ncluding the left peroneal veins IMPRESSION: No evidence of deep venous thrombosis of the lower extremities Reviewed, dictated and finalized at [facility] Reviewed, dictated and finalized at [facility]. BRUSHER
== END 2022-07-13 17:03 | disposition home or self-care (01) ==
LOC: ANHIMG 17:08
PROVIDERS: PCP Emergency Medicine; Visit Provider Internal Medicine Hematology & Oncology
DX: I82.4Z2 Acute embolism and thrombosis of unspecified deep veins of left distal lower extremity (principal); D64.9 Anemia, unspecified
CPT/HCPCS: 93970

== ENCOUNTER 2023-12-30 07:41 | Emergency (ER) | payer OTHER, SELFPAY ==
[2023-12-30 07:42] VITALS: BP 159/99; PULSE 93; RESP 20; TEMP 36.5; O2SAT 100
--- NOTE | 2023-12-30 08:27 | ED.BACK ---
HPI - Back Pain/Injury General Chief Complaint: Back Pain/Injury Stated Complaint: low back pain Time Seen by Provider: 12/30/23 08:03 History of Present Illness HPI Narrative: 38-year-old female presenting to the emergency room for evaluation of left lower back pain that radiates into her left hip. Patient denies any specific incident injury. Patient has no prior history of back surgery. Patient reports pain that radiates down the left leg but denies any associated numbness or weakness. Patient denies any change in bowel habits denies any numbness when wiping. Patient has been taking [id number] medications for pain control but states that the pain continues to worsen. Related Data Home Medications Medication Instructions Recorded Confirmed albuterol 90 mcg/actuation aerosol 90 mcg inhalation Q4H PRN Wheezing 03/02/22 03/23/22 inhaler cholecalciferol (vitamin D3) 100 4,000 unit PO DAILY 03/02/22 03/23/22 mcg (4,000 unit) capsule ferrous sulfate 140 mg (45 mg 140 mg PO DAILY 03/02/22 03/02/22 iron) tablet,extended release prenat.vits,eben,[id number] 1 tablet PO DAILY 03/02/22 03/23/22 Allergies Allergy/AdvReac Type Severity Reaction Status Date / Time No Known Allergies Allergy Verified 12/30/23 08:05 Review of Systems Review of Systems: All systems reviewed & are unremarkable except as noted in HPI and below PMFSH Past Medical History Medical History History of asthma HTN (hypertension) Morbid obesity Surgical History Surgical History History of section Family History Family History Grandparent Hypertension Diabetes mellitus Mother Hypertension Diabetes mellitus Social History Social History Smoking status: Never smoker Second hand tobacco smoke exposure: No Alcohol intake: never Substance use: never Spiritual care concerns: No Exam Narrative: APPEARANCE: Uncomfortable appearing HEAD: normocephalic, atraumatic. EYES: PERRLA/EOMI, conjunctivae clear. NOSE: Normal no drainage EARS:TMS clear with good light reflex. THROAT: Pharynx clear, no exudate. NECK: Supple. No adenopathy, no masses. RESPIRATORY: Airway patent, respirations nonlabored. Clear to auscultation bilaterally, no rales, rhonchi, wheezing. CARDIOVASCULAR: Regular rate and rhythm without murmurs rubs or gallops. ABDOMINAL: Soft, nontender, nondistended, normal bowel sounds MUSCULOSKELETAL: Left lower back tenderness to palpation, left buttock tenderness to palpation, negative straight leg NEURO: Alert. Cranial nerves II through XII intact. Grossly intact SKIN: Warm, dry. Normal Color Course Vital Signs Vital signs: Vital Signs Temperature 97.7 F 12/30/23 07:42 Pulse Rate 93 12/30/23 07:42 Respiratory Rate 20 12/30/23 07:42 Blood Pressure 159/99 H 12/30/23 07:42 Pulse Oximetry 100 12/30/23 07:42 Oxygen Delivery Room Air 12/30/23 07:42 Temperature 97.7 F 12/30/23 07:42 Pulse Rate 93 12/30/23 07:42 Respiratory Rate 20 12/30/23 07:42 Blood Pressure 159/99 H 12/30/23 07:42 Pulse Oximetry 100 12/30/23 07:42 Oxygen Delivery Room Air 12/30/23 07:42 MDM - Back Pain/Injury MDM Narrative Medical decision making narrative: 38-year-old female presenting to the emergency department for evaluation of 5 days of lower back pain that radiates to her left hip and down the left leg. Patient exam is consistent with sciatica. Patient will be started on a Medrol Dosepak, provided Flexeril and additional medication for pain control. Patient was updated results of her exam encouraged of close follow-up with her primary care physician. Patient was also updated that she may need physical therapy if this becomes recurrent. Differential Diagnosis Diffe
[2023-12-30] MEDS: CYCLOBENZAPRINE HCL 10 MG TABLET PO (08:31)
[2023-12-30] MEDS: KETOROLAC 30 MG/ML VIAL (*BKC) IM (08:31)
== END 2023-12-30 08:40 | disposition home or self-care (01) ==
PROVIDERS: Emergency Provider Emergency Medicine; PCP Emergency Medicine
DX: M54.42 Lumbago with sciatica, left side (principal); J45.909 Unspecified asthma, uncomplicated; I10 Essential (primary) hypertension; E66.01 Morbid (severe) obesity due to excess calories; Z68.43 Body mass index [BMI] 50.0-59.9, adult; Z79.899 Other long term (current) drug therapy
CPT/HCPCS: 96372; 99283; A9270; J1885